=== PATIENT | female | born 1960 | race Caucasian/White ===

== ENCOUNTER → 2019-12-11 13:57 | Outpatient (BNVA) | payer SELFPAY | PROVIDERS: Family Provider Nurse Practitioner Family; PCP Nurse Practitioner Family; Visit Provider Nurse Practitioner Family | DX: M25.532 Pain in left wrist (principal); M19.032 Primary osteoarthritis, left wrist | CPT/HCPCS: 73110 ==

== ENCOUNTER 2020-02-06 17:32 | Inpatient (IN) | payer SELFPAY ==
[2020-02-06] VITALS (9 sets, daily range): BP systolic 100–167; BP diastolic 59–93; PULSE 70–95; RESP 16–17; TEMP 36.4–37.2; O2SAT 97–100; BMI 20.9
--- NOTE | 2020-02-06 19:40 | W.ED.GENADLT ---
HPI - General Adult General: Chief complaint: General Medical Stated complaint: ABNORMAL LABS Time Seen by Provider: 02/06/20 19:39 Source: patient Limitations: no limitations History of Present Illness: HPI narrative: Mrs. Monroe is a nice 59-year-old female who comes in complaining of shortness of breath for 1 month. She states that she gets this with exertion. She states she cannot walk across her house now without becoming short of breath. She denies any chest pain or syncope. Patient does have a history of ulcers but denies any recent black tarry stools or blood in her stool. Patient went see her primary care physician today with fasting labs and was called and told she was anemic. She was advised to come to the ER. Associated symptoms: Deny chest pain, dyspnea, headache(s), nausea, rash, palpitations, syncope or vomiting Review of Systems Const: Denies: fever(s) Eyes: Denies: change in vision ENMT: Denies: throat pain Card: Reports: dyspnea on exertion; Denies: chest pain, palpitations, syncope or pre-syncope Resp: Denies: dyspnea, productive cough or non-productive cough GI: Denies: abdominal pain, nausea, vomiting or diarrhea : Denies: flank pain, dysuria, urinary frequency or urinary urgency Musc: Denies: neck pain, back pain or extremity pain Skin/Breast: Denies: rash or pruritus Neuro: Denies: headache(s), numbness in extremities, weakness in extremities or dizziness Ji/Lymph: Denies: easy bruising or easy bleeding All/Imm: Denies: urticaria PFSH ED PFSH: Medical History (Updated 02/07/20 @ 02:02 by Zander Vinson MD) DJD (degenerative joint disease) HTN (hypertension) Hyperlipidemia LVH (left ventricular hypertrophy) PAD (peripheral artery disease) Peptic ulcer disease EGD around 2004 demonstrating ulcer S/P angiogram of extremity History of SFA stenting Tobacco dependency Surgical History (Updated 02/07/20 @ 01:54 by Zander Vinson MD) History of appendectomy Family History Father PVD (peripheral vascular disease) FH: CABG (coronary artery bypass surgery) Mother Hypertension Atrial fibrillation Social History Smoking and tobacco status: current every day smoker cigarettes Alcohol intake: current Substance/Drug Use: never History of recent travel: No Physical Exam Const: COMMON NORMALS: no acute distress, patient oriented x3, no limitations, healthy appearing and well nourished GENERAL APPEARANCE: cooperative, well kempt and well developed HENMT: COMMON NORMALS: normocephalic, atraumatic, external ears normal, EAC's normal and Normal external nose present HEAD & SCALP: normal to inspection, normocephalic and atraumatic FACE & SINUS: normal facial exam and face symmetric NOSE: Normal external nose present and Normal nares present EXTERNAL EAR: Yes external ears normal EXTERNAL AUDITORY CANAL: EAC's normal MOUTH: Normal oral and palatal mucosa present, lip normal and tongue normal Eye: COMMON NORMALS: Equal, round and reactive pupils present and conjunctivae normal GENERAL EYE: appearance normal, both eyes and all related structures ALIGNMENT: Yes alignment normal PERIORBITAL: periorbital findings normal EYELID: eyelids normal CONJUNCTIVA: Yes conjunctivae normal SCLERA: sclerae normal PUPIL: Yes Equal, round and reactive pupils present Neck/C-Spine: COMMON NORMALS: full ROM, no lymphadenopathy, supple, no meningeal signs and no JVD GENERAL: Yes normal visual inspection and Yes trachea midline Chest: COMMONS NORMALS: normal inspection of the chest and normal palpation of entire chest wall Resp: COMMON NORMALS: normal respiratory effort, No retractions and No use of accessory muscles EFFORT & INSPECTION: Yes able to speak in complete sentences and Yes symmetric chest movement AUSCULTATION: no crackles, no rales, no rhonchi and no wheezes Cardio: COMMON NORMALS: no JVD, regular rate, regular rhythm, S1 normal heart sound present and S2 normal heart sound present RATE: regular rate RHYTHM: regular rhythm HEART SOUNDS: S1 normal heart sound present, S2 normal heart sound present, no click, no gallops, no murmurs, no rubs and abnormal split S2 GI: COMMON NORMALS: Soft to palpation and No hepatosplenomegaly present PALPATION: Yes Soft to palpation, No Tenderness to palpation present (GI), No Guarding due to palpation present (GI), No Rigid due to palpation, Yes No hepatosplenomegaly present, No Hernia present, No Palpable mass present and No Pulsatile mass present RECTAL EXAM: visual inspection normal, normal sphincter tone, heme positive stool trace and No External hemorrhoid(s) present : COMMON NORMALS: Yes no CVA tenderness BLADDER/KIDNEY EXAM: Yes no CVA tenderness EXTERNAL FEMALE EXAM: No Hernia present Back/Pelvis: COMMON NORMALS: no CVA tenderness, thoracic and lumbar spine normal to inspection, no thoracic nor lumbar tenderness and thoraco-lumbar ROM normal Extremity: COMMON NORMALS: normal to inspection, full ROM, capillary refill normal, no joint enlargement, no clubbing, cyanosis or edema and no calf tenderness Neuro: COMMON NORMALS: patient oriented x3, CN's II-XII intact bilaterally, moves all extremities, no focal motor deficits and no sensory deficits noted MENINGEAL SIGNS: Yes no meningeal signs SPEECH: speech normal Psych: COMMON NORMALS: mental status grossly normal, Normal thought process present, cooperative, normal affect, speech normal and activity/motor behavior normal APPEARANCE: Yes well kempt SPEECH: Yes normal speech THOUGHT PROCESS: Normal thought process present Skin: COMMON NORMALS: no rashes or lesions noted, turgor normal, no jaundice, no petechiae and no mottling GENERAL SKIN EXAM: no rashes or lesions noted and turgor normal Course Vital Signs: Vital signs: Vital Signs Temperature 98.7 F 02/07/20 02:11 Pulse Rate 84 02/07/20 02:11 Respiratory Rate 14 02/07/20 02:11 Blood Pressure 155/84 02/07/20 02:11 Pulse Oximetry 98 02/07/20 02:11 MDM - General Adult MDM Narrative: Medical decision making narrative: Chiquita is a nice 59-year-old female who comes in complaining of generalized weakness and shortness of breath. She is found to have a hemoglobin of 5.8. She is only trace Hemoccult positive. She is not been dizzy, lightheaded, syncopal or had any chest pain. Her only complaint is dyspnea on exertion. The case was reviewed in its entirety with Dr. Vinson he is agreeable to admission to the floor for further evaluation and care. Lab Data: Attestation: I reviewed the patient's lab results. Labs: Lab Results 02/06/20 02/06/20 02/06/20 Range/Units 19:50 19:57 19:57 WBC 6.4 (4.0-10.0) 10^3/ uL RBC 2.17 L (4.1-5.3) 10^6/u L Hgb 5.8 L* (11.5-15.3) g/dL Hct 20.1 L* (37.0-47.0) % MCV 92.6 (81-99) fL MCH 26.7 L (28.0-34.0) pg MCHC 28.9 L (30.0-36.0) g/dL RDW 18.2 H (12.1-15.1) % Plt Count 637 H (130-400) 10^3/c mm MPV 8.2 (7.4-10.4) fL Neut % (Auto) 51.5 % Lymph % (Auto) 30.9 % [place] % (Auto) 15.2 % Eos % (Auto) 1.6 % Baso % (Auto) 0.6 % Neut # (Auto) 3.31 (1.8-7.7) 10^3/u L Lymph # (Auto) 2.0 (0.8-4.8) 10^3/u L [place] # (Auto) 1.0 H (0.2-0.9) 10^3/u L Eos # (Auto) 0.1 (0.0-0.8) 10^3/u L Baso # (Auto) 0.0 (0.0-0.1) 10^3/u L Nucleated RBC % (a uto) 0.3 % Nucleated RBCs # 0.0 /100WBC PT (12.1-14.9) SECO NDS INR (0.8-1.2) APTT (23.9-36.7) SECO NDS Sodium 134 L (136-145) mmol/L Potassium 4.5 (3.5-5.1) mmol/L Chloride 102 (98-107) mmol/L Carbon Dioxide 22 (22-29) mmol/L Anion Gap 14.5 (5-19) BUN 11 (8-23) mg/dL Creatinine 1.0 H (0.5-0.9) mg/dL GFR Calculation 56.6 L (90-130) mL/min Glucose 100 (65-115) mg/dL Calculated Osmolal ity 274 L (285-295) mOsm/k g Calcium 8.9 (8.5-10.5) mg/dL Total Bilirubin 0.2 (0.15-1.2) mg/dL AST 14 (0-32) U/L ALT 12 (0-33) U/L Alkaline Phosphata se 106 H (35-105) IU/L Troponin T Baselin e (0-10) ng/L Total Protein 6.9 (6.6-8.7) g/dL Albumin 3.9 (3.5-5.2) g/dL Globulin 3.0 (1.3-4.6) g/dL Blood Type O Positive Rho(D) Type Positive Antibody Screen Negative Crossmatch See Detail 02/06/20 02/06/20 Range/Units 19:57 19:57 WBC (4.0-10.0) 10^3/ uL RBC (4.1-5.3) 10^6/u L Hgb (11.5-15.3) g/dL Hct (37.0-47.0) % MCV (81-99) fL MCH (28.0-34.0) pg MCHC (30.0-36.0) g/dL RDW (12.1-15.1) % Plt Count (130-400) 10^3/c mm MPV (7.4-10.4) fL Neut % (Auto) % Lymph % (Auto) % [place] % (Auto) % Eos % (Auto) % Baso % (Auto) % Neut # (Auto) (1.8-7.7) 10^3/u L Lymph # (Auto) (0.8-4.8) 10^3/u L [place] # (Auto) (0.2-0.9) 10^3/u L Eos # (Auto) (0.0-0.8) 10^3/u L Baso # (Auto) (0.0-0.1) 10^3/u L Nucleated RBC % (a uto) % Nucleated RBCs # /100WBC PT 13.10 (12.1-14.9) SECO NDS INR 0.96 (0.8-1.2) APTT 29.1 (23.9-36.7) SECO NDS Sodium (136-145) mmol/L Potassium (3.5-5.1) mmol/L Chloride (98-107) mmol/L Carbon Dioxide (22-29) mmol/L Anion Gap (5-19) BUN (8-23) mg/dL Creatinine (0.5-0.9) mg/dL GFR Calculation (90-130) mL/min Glucose (65-115) mg/dL Calculated Osmolal ity (285-295) mOsm/k g Calcium (8.5-10.5) mg/dL Total Bilirubin (0.15-1.2) mg/dL AST (0-32) U/L ALT (0-33) U/L Alkaline Phosphata se (35-105) IU/L Troponin T Baselin e 27 H (0-10) ng/L Total Protein (6.6-8.7) g/dL Albumin (3.5-5.2) g/dL Globulin (1.3-4.6) g/dL Blood Type Rho(D) Type Antibody Screen Crossmatch EKG Data^: EKG 1: Attestation: I personally reviewed and interpreted this EKG as follows: EKG interpretation date: 02/06/20 EKG interpretation time: 20:56 Interpretation: Normal sinus rhythm at 86 beats a minute, nonspecific ST and T wave changes. No acute findings. Discharge Plan Discharge Patient Disposition: Admitted As Inpatient Admit Provider: Zander Vinson Clinical Impression: GI bleed Qualifiers: GI bleed type/associated pathology: anorectal hemorrhage Qualified Code(s): K62.5 - Hemorrhage of anus and rectum Anemia Qualifiers: Anemia type: unspecified type Qualified Code(s): D64.9 - Anemia, unspecified Condition: Stable Referrals: Carmen Hassan FNP-C [Primary Care Provider] - Discharge Date/Time: 02/06/20 22:29 Coding Level of Care Code ED Clinical Laboratory Aides Teacher for Chg Fwd Exam Comprehensive
--- NOTE | 2020-02-06 20:01 | PC.NURSE ---
Patient to treatment room. Gowned
[2020-02-06 20:05] LABS: Basophils % 0.6 %; Eosinophils # 0.1 10^3/uL (0.0-0.8); Eosinophils % 1.6 %; Lymphocytes % 30.9 %; Mean Corpuscular HGB Conc 28.9 g/dL (30.0-36.0); Mean Corpuscular Hemoglobin 26.7 pg (28.0-34.0); Mean Corpuscular Volume 92.6 fL (81-99); Mean Platelet Volume 8.2 fL (7.4-10.4); Monocytes % 15.2 %; Neutrophils # 3.31 10^3/uL (1.8-7.7); Neutrophils % 51.5 %; Nucleated Red Blood Cells % 0.3 %; Platelet Count 637 10^3/cmm (130-400); Red Blood Count 2.17 10^6/uL (4.1-5.3); Red Cell Distribution Width 18.2 % (12.1-15.1); White Blood Count 6.4 10^3/uL (4.0-10.0)
[2020-02-06 20:13] LABS: Hematocrit 20.1 % (37.0-47.0); Hemoglobin 5.8 g/dL (11.5-15.3)
[2020-02-06 20:24] LABS: Alanine Aminotransferase 12 U/L (0-33); Albumin Level 3.9 g/dL (3.5-5.2); Alkaline Phosphatase 106 IU/L (35-105); Anion Gap 14.5 (5-19); Aspartate Amino Transferase 14 U/L (0-32); Blood Urea Nitrogen 11 mg/dL (8-23); Calcium 8.9 mg/dL (8.5-10.5); Carbon Dioxide 22 mmol/L (22-29); Chloride 102 mmol/L (98-107); Glomerular Filtration Rate 56.6 mL/min (90-130); Glucose 100 mg/dL (65-115); Osmolality Calculated 274 mOsm/kg (285-295); Potassium 4.5 mmol/L (3.5-5.1); Sodium 134 mmol/L (136-145); Total Bilirubin 0.2 mg/dL (0.15-1.2); Total Protein 6.9 g/dL (6.6-8.7)
--- NOTE | 2020-02-06 20:47 | ECG_ITS ---
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 Measurements Intervals [place] Rate: 86 P: 48 [place]: 202 QRS: -1 QRSD: 87 T: 65 QT: 371 QTc: 444 Interpretive Statements SINUS RHYTHM POSSIBLE LEFT ATRIAL ENLARGEMENT [-0.1mV P WAVE IN V1/V2] Compared to ECG 04/19/2019 05:57:41 First degree AV block no longer present Myocardial infarct finding no longer present Electronically Signed On 02-06-2020 21:43:24 CDT by Giana Pires M.D. [id number]
[2020-02-06 21:09] LABS: INR 0.96 (0.8-1.2); Partial Thromboplastin Time 29.1 SECONDS (23.9-36.7)
[2020-02-06 21:24] LABS: Troponin(5th) Baseline 27 ng/L (0-10)
[2020-02-06] MEDS: pantoprazole 40 mg SDV 80 MG IVP (22:27)
[2020-02-06 22:44] LABS: Troponin 5 2HR 27.05 ng/L (0-10); Troponin 5 2HR Delta 0.05 ABS# (0-10)
[2020-02-06] MEDS: sodium chloride 0.9% (100 ml) 100 ML 10 ML (22:59)
--- NOTE | 2020-02-06 23:23 | PM.HP ---
Providers/Chief Complaint Admitting Physician: Isaias Gómez MD Primary Care Provider: Carmen Hassan FIELD SERVICE CONSULTANT-C Chief Complaint: ABNORMAL LABS History of Present Illness Chiquita Monroe is a 59 year old female that presents to the hospital with complaints of dyspnea on exertion for the last month or so. No chest discomfort, dizzy, and fatigue. Seems a little bit better in the last 3 days. Has had darker stool than usual, for perhaps 1 month. Does have past history of ulcer. Was told by her primary care provider on blood work that she was anemic and needed to come to the ER. No nausea, vomiting, diarrhea. No history of severe anemia in the past. In the emergency department Hemoccult was trace heme positive. No history of cirrhosis, varices. Noticed a slight amount of blood when she gagged on her dentures and vomited 1 day. Rare ibuprofen use and last use this at the end of November. Is on Plavix and aspirin. Has never had a colonoscopy. Does have aunt with history of colon cancer. Review of Systems General: Reports: 10 or more systems reviewed and unremarkable except in HPI and below Const: Reports: fever(s) and malaise; Denies: chills Eyes: Denies: change in vision ENMT: Denies: throat pain Card: Reports: lightheadedness; Denies: chest pain Resp: Reports: dyspnea GI: Denies: abdominal pain : Denies: flank pain Skin/Breast: Denies: rash Neuro: Denies: headache(s) Psych: Denies: anxiety Endo: Denies: polyuria Ji/Lymph: Denies: easy bruising All/Imm: Denies: urticaria Medications/Allergies Home Medications Medication Instructions Recorded Confirmed Last Taken Type amlodipine 5 mg tablet 5 mg PO DAILY 08/22/19 02/06/20 Unknown History ascorbic acid (vitamin C) 500 mg 500 mg PO BID 08/22/19 02/06/20 Unknown History capsule aspirin 81 mg tablet,delayed 81 mg PO DAILY 08/22/19 02/06/20 02/06/20 History release carvedilol 12.5 mg tablet 18.75 mg PO BID tab 08/22/19 02/06/20 02/06/20 History 12.5 mg clopidogrel 75 mg tablet 75 mg PO DAILY 08/22/19 02/06/20 02/06/20 History rosuvastatin 20 mg tablet 20 mg PO DAILY 08/22/19 02/06/20 02/06/20 History spironolactone 25 mg tablet 25 mg PO DAILY PRN 12/11/19 02/06/20 Unknown History Elderberry Tab 1 tab PO BID 02/06/20 02/06/20 Unknown History niacin 500 mg PO BID 02/06/20 02/06/20 Unknown History Allergies Allergy/AdvReac Type Severity Reaction Status Date / Time morphine Allergy Severe Nereida Verified 02/06/20 20:11 erythromycin base Allergy Unknown Unknown Verified 02/06/20 20:11 azithromycin [From Zithromax] Allergy Unknown Verified 02/06/20 20:11 PFSH Acute PFSH: Medical History (Updated 02/07/20 @ 02:02 by Zander Vinson MD) DJD (degenerative joint disease) HTN (hypertension) Hyperlipidemia LVH (left ventricular hypertrophy) PAD (peripheral artery disease) Peptic ulcer disease EGD around 2004 demonstrating ulcer S/P angiogram of extremity History of SFA stenting Tobacco dependency Surgical History (Updated 02/07/20 @ 01:54 by Zander Vinson MD) History of appendectomy Family History Father PVD (peripheral vascular disease) FH: CABG (coronary artery bypass surgery) Mother Hypertension Atrial fibrillation Social History Smoking and tobacco status: current every day smoker cigarettes Alcohol intake: current Substance/Drug Use: never History of recent travel: No Supplemental PFSH Information: Drinks around 2 beverages per day Vitals/I&O/Wt Last Vital Signs Temp 98.7 F 02/06/20 22:49 Pulse 87 02/06/20 22:49 Resp 16 02/06/20 22:49 BP 157/89 02/06/20 22:49 Pulse Ox 99 02/06/20 22:49 02/06/20 02/06/20 02/07/20 14:59 22:59 06:59 Intake Total 0 / 0 Balance 0 / 0 Weight last 48 hrs Weight 62.596 kg Physical Exam Narrative: EXAM NARRATIVE: General exam no apparent distress, conversant and pleasant HEENT: Pupils equally round. Oropharynx clear. Neck is supple no lymphadenopathy or thyromegaly Cardiovascular regular rate and rhythm with a 3/6 systolic murmur heard best at her aortic area Lungs clear no wheezing or crackles Abdomen is soft with positive bowel sounds. No obvious organomegaly. No tenderness. was deferred Extremities no cyanosis clubbing or edema, cap refill brisk Skin no rash Neuro no focal deficits. Data : 02/06/20 19:57 02/06/20 19:57 Other data: Alk phos slightly elevated. Troponin XX 7, unchanged at 120 minutes. EKG sinus rhythm, left axis deviation, nonspecific ST-T wave changes, left atrial enlargement demonstrated by P wave in V1 biphasic. A&P Assessment and plan (1) Anemia: Severe anemia, suspect upper GI loss. Transfusion arranged in the emergency department. 3 units were ordered. Repeat CBC following transfusion Check anemia panel, stool Hemoccult Protonix 40 mg IV every 12 hours Surgery consult for possible EGD Will need colonoscopy as outpatient secondary to family history of colon cancer, no previous screening. Status: Acute Qualifiers: Anemia type: unspecified type Qualified Code(s): D64.9 - Anemia, unspecified (2) GI bleed: Protonix 40 mg IV every 12 hours Status: Acute Qualifiers: GI bleed type/associated pathology: anorectal hemorrhage Qualified Code(s): K62.5 - Hemorrhage of anus and rectum (3) Tobacco dependency: Counseled 3 to 5 minutes on abstinence Status: Acute (4) Heart murmur: Check echocardiogram, for concern of aortic stenosis. Status: Acute Additional A&P Information Peripheral vascular disease. 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
[2020-02-07] VITALS (25 sets, daily range): BP systolic 112–186; BP diastolic 70–102; PULSE 73–95; RESP 12–18; TEMP 36.1–37.2; O2SAT 12–99
--- NOTE | 2020-02-07 02:01 | USCV_ITS ---
Chiquita Monroe Age: 59 Gender: F : 1960 Exam Date: 02/07/2020 06:37 Ordering Phys: Zander Vinson MD Technologist: [employer] [place] [facility] [place]: HEAT MURMUR BP: 151 / 85 HR: 86 Rhythm: Sinus Technical Quality: Adequate MEASUREMENTS (Male / Female) Normal Values 2D ECHO LV Diastolic Diameter PLAX 4.6 cm 4.2 - 5.9 / 3.9 - 5.3 cm LV Systolic Diameter PLAX 2.5 cm LV Chamber Size 3.5 cm IVS Diastolic Thickness 1.4 cm 0.6 - 1.0 / 0.6 - 0.9 cm IVS Systolic Thickness 1.7 cm LVPW Diastolic Thickness 1.4 cm 0.6 - 1.0 / 0.6 - 0.9 cm LVPW Systolic Thickness 1.9 cm RV Chamber Size 2.6 cm LVOT Diameter 2.0 cm LV Ejection Fraction 2D Teich 75.9 % LV Ejection Fraction MOD 2C 70.2 % LV Ejection Fraction 2C AL 71.4 % LA Diameter 4.9 cm LA Width 2.5 cm LA Height 4.5 cm RA Width 2.7 cm RA Height 4.1 cm Aorta at Sinotubular Diameter 2.7 cm M-MODE LV Diastolic Diameter MM 5.7 cm 4.2 - 5.9 / 3.9 - 5.3 cm LV Systolic Diameter MM 2.8 cm LV Ejection Fraction MM Teich 81.6 % IVS Diastolic Thickness MM 0.6 cm 0.6 - 1.0 / 0.6 - 0.9 cm IVS Systolic Thickness MM 1.8 cm LVPW Diastolic Thickness MM 0.8 cm 0.6 - 1.0 / 0.6 - 0.9 cm LVPW Systolic Thickness MM 1.6 cm RV Diastolic Diameter MM 0.6 cm Aortic Annulus Diameter 3.2 cm LA Ao Ratio MM 1.5 MV E Point Septal Separation 0.1 cm DOPPLER AV Peak Velocity 176.0 cm/s LVOT Peak Velocity 190.0 cm/s AV Area Cont Eq vti 3.5 cm squared AV Area Cont Eq pk 3.4 cm squared MV Area PHT 5.0 cm squared Mitral E to A Ratio 1.2 MV E' Velocity 12.0 cm/s Mitral E to MV E' Ratio 14.3 Mitral E to LV E' Lateral Ratio 13.8 Mitral E to LV E' Septal Ratio 14.9 TR Peak Velocity 238.9 cm/s TR Peak Gradient 22.8 mmHg TR Mean Velocity 182.6 cm/s TR Mean Gradient 14.5 mmHg TR Velocity Time Integral 75.3 cm TV Peak E Velocity 84.0 cm/s Right Atrial Pressure 3.0 mmHg Pulmonary Artery Systolic Pressu 25.8 mmHg PV Peak Velocity 71.0 cm/s RV Acceleration Time 0.1 s RV Ejection Time 0.3 s RV AcT/ET 0.4 FINDINGS Left Ventricle Normal left ventricular size and systolic function, EF 67 %. Moderate left ventricular hypertrophy. No regional wall motion abnormalities. Grade III/IV diastolic dysfunction (restrictive filling pattern), severely elevated filling pressures. Right Ventricle The right ventricle is normal in size and function. Right Atrium The right atrium is normal in size. Left Atrium Mildly increased left atrial size. Mitral Valve Thickened mitral valve. Moderate-severe mitral valve regurgitation. Possible prolapse of the anterior mitral leaflet Aortic Valve Trace aortic valve regurgitation. Tricuspid Valve Trace tricuspid valve regurgitation. Estimated pulmonary artery peak systolic pressure 26 mmHg Pulmonic Valve Structurally normal pulmonic valve without significant stenosis. There is no pulmonic regurgitation. Pericardium Normal pericardium without effusion. Aorta Normal aortic annulus size. CONCLUSIONS Normal left ventricular size and systolic function, EF 67 %. Moderate left ventricular hypertrophy. No regional wall motion abnormalities. Grade III/IV diastolic dysfunction (restrictive filling pattern), Mildly increased left atrial size. Thickened mitral valve. Moderate-severe mitral valve regurgitation. Possible prolapse of the anterior mitral leaflet Trace aortic valve regurgitation. Trace tricuspid valve regurgitation. Estimated pulmonary artery peak systolic pressure 26 mmHg There is no pericardial effusion. There are no intracardiac masses. No previous study is available for comparison. Dr Heather Sesay MD FAC (Electronically Signed) Final Date: 07 February 2020 16:56 S
[2020-02-07] MEDS: sodium chloride 0.9% (100 ml) 100 ML 10 ML (02:31)
[2020-02-07 03:52] LABS: Basophils % 0.6 %; Eosinophils # 0.2 10^3/uL (0.0-0.8); Eosinophils % 2.3 %; Hematocrit 23.6 % (37.0-47.0); Hemoglobin 7.2 g/dL (11.5-15.3); Lymphocytes # 2.2 10^3/uL (0.8-4.8); Lymphocytes % 34.2 %; Mean Corpuscular HGB Conc 30.5 g/dL (30.0-36.0); Mean Corpuscular Hemoglobin 26.6 pg (28.0-34.0); Mean Corpuscular Volume 87.1 fL (81-99); Mean Platelet Volume 8.4 fL (7.4-10.4); Monocytes # 0.9 10^3/uL (0.2-0.9); Monocytes % 14.5 %; Neutrophils # 3.07 10^3/uL (1.8-7.7); Neutrophils % 48.1 %; Nucleated Red Blood Cells % 0 %; Platelet Count 506 10^3/cmm (130-400); Red Blood Count 2.71 10^6/uL (4.1-5.3); Red Cell Distribution Width 19.3 % (12.1-15.1); White Blood Count 6.4 10^3/uL (4.0-10.0)
[2020-02-07 04:20] LABS: Add On to Lab Order(s) Added
[2020-02-07 04:21] LABS: Blood Urea Nitrogen 10 mg/dL (8-23); Calcium 8.4 mg/dL (8.5-10.5); Carbon Dioxide 20 mmol/L (22-29); Chloride 104 mmol/L (98-107); Glomerular Filtration Rate 63.9 mL/min (90-130); Glucose 97 mg/dL (65-115); Osmolality Calculated 276 mOsm/kg (285-295); Sodium 135 mmol/L (136-145)
[2020-02-07 04:25] LABS: Troponin 5 6HR 25.97 ng/L (0-10)
[2020-02-07 04:26] LABS: Troponin 5 6HR Delta -1.03 ng/L (0-12)
[2020-02-07 04:32] LABS: Thyroid Stimulating Hormone 1.21 uIU/mL (0.27-4.20)
[2020-02-07 04:40] LABS: Ferritin 15 ng/mL (15-150); Iron 155 ug/dL (37-145); Percent Saturation 43.1 % (20-50); Total Iron Binding Capacity 359 mcg/dl; Unsaturated Iron Binding 204 ug/dL (112-347); Vitamin B12 812 pg/mL (232-1245)
[2020-02-07 04:41] LABS: Folate Level 17.4 ng/mL (4.8-37.3)
[2020-02-07] MEDS: sodium chloride 0.9% (100 ml) 100 ML 40 ML (06:11)
[2020-02-07] MEDS: atorvastatin 40 mg Tablet 80 MG PO (08:07)
[2020-02-07] MEDS: amlodipine 5 mg Tablet PO (08:07)
--- NOTE | 2020-02-07 08:22 | PC.CHAP ---
Pastoral Care Encounter/Spiritual Assessment Type of Contact [] Declined career technical education instructor visit [] Patient/Family/Request visit [] Outpatient visit [] Follow-up visit [] Physician referral [] Code/Alert [x] Routine visit [] Staff referral [] Actively dying [] Patient sleeping [] Family support [] [] Out of room [] Palliative care [] [] Receiving care in room [] Pre-surgical visit [] Trauma [] Long length of stay [] ICU visit [] Other: Relational/Emotional Strength [] Patient feels connected with others/family/visitors/staff [] Distress [] Loneliness/isolation [] Abandonment Spirituality of Patient [] Person of Roxi [] Attends Pentecostalism of their Roxi [] Believes in Prayer [] Reads Bible or Faith materials [] There are Spiritual issues to be addressed Oil 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 Interventions [x] Prayer [x] Active listening [x] Non-anxious presence [x] Spiritual/emotional support [] Crisis/trauma care [] Spiritual counseling [] Bereavement support [] Provided bereavement packet [] Provided Bible/devotional materials [] Provided toy/stuffed animal, coloring book to patient or family member [] Provided Communion [] Anointing/Point Comfort [] Salvation [x] Completed spiritual assessment [] Other: Impact on Illness or Injury [] Angry [] Fearful [] Anxious [] Often cries [] Exhaustion [] Unable to work [] Unable to attend oriental orthodox [] Unable to walk/stand [] Unable to read [] Unable to drive [] Unable to eat/drink [] Unable to sleep [] Unable to be with family [] Patient intubated [] Other: Summary patient receiving blood- resting well. Time spent with patient 10 min
[2020-02-07] MEDS: pantoprazole 40 mg SDV IVP ×2 (10:22→21:01)
--- NOTE | 2020-02-07 11:04 | PC.RESP ---
Smoking Cessation information sent to patient.
--- NOTE | 2020-02-07 11:05 | PM.PN ---
Subjective Subjective: Interval history: Repeat 7.2 this morning. Patient otherwise feeling well. No melena. She had one bowel movement this morning which she reports was brown and semisolid. No hematemesis. Medications: Reviewed: Yes Vitals/I&O/Wt Last Vital Signs Temp 98.2 F 02/07/20 10:17 Pulse 85 02/07/20 10:17 Resp 18 02/07/20 10:17 BP 186/93 02/07/20 10:17 Pulse Ox 93 02/07/20 10:17 02/06/20 02/07/20 02/07/20 22:59 06:59 14:59 Intake Total 0 / 0 700 / 700 0 / 0 Output Total 1150 / 1150 500 / 500 Balance 0 / 0 -450 / -450 -500 / -500 Weight last 48 hrs Weight 62.596 kg Physical Exam Narrative: EXAM NARRATIVE: GEN: Awake, alert and oriented, no acute distress CVS: S1S2 N RS: CTA B/L except crackles over RUL Abd: Soft, nt/nd , bs+ ELECTRICAL INTEGRATOR: no focal neuro deficits Data : 02/07/20 03:35 02/07/20 03:35 A&P Assessment and plan (1) Anemia: Severe anemia, suspect upper GI loss. Status post 3 unit RBC transfusion. Will order another unit now. Protonix 40 mg IV every 12 hours Surgery consult for possible EGD Will need colonoscopy as outpatient secondary to family history of colon cancer, no previous screening. Status: Acute Qualifiers: Anemia type: unspecified type Qualified Code(s): D64.9 - Anemia, unspecified (2) GI bleed: Protonix 40 mg IV every 12 hours Status: Acute Qualifiers: GI bleed type/associated pathology: anorectal hemorrhage Qualified Code(s): K62.5 - Hemorrhage of anus and rectum (3) Tobacco dependency: Status: Acute (4) Heart murmur: Check echocardiogram, for concern of aortic stenosis., Results pending Status: Acute Additional A&P Information Peripheral vascular disease. At this point will need to hold antiplatelet Hyperlipidemia, continue statin full code SCDs for DVT prophylaxis, anticoagulation contraindicated secondary to GI bleeding Attestations Medical Necessity Statement*: Awaiting surgical assessment for EGD, blood transfusion Coding Level of Care Code Acute Talent Development Specialist for [facility] Diagnoses Anemia D64.9 Anemia type: unspecified type GI bleed K62.5 GI bleed type/associated pathology: anorectal hemorrhage Tobacco dependency F17.200 Heart murmur R01.1
[2020-02-07] MEDS: sodium chloride 0.9% 1,000 ML 50 ML IV (14:30)
--- NOTE | 2020-02-07 16:30 | PC.NURSE ---
DR ROBERT ODERED FOR PT TO BE CLEANED OUT BEFORE EGD AND COLONOSCOPY AND IF SHE IS NOT IN A.M THEN HE ORDERED FOR HER TO HAVE A FLEETS ENEMA.
--- NOTE | 2020-02-07 16:35 | P.CONIM_ITS ---
Providers/Reason For Consult Consulting Physican/Specialty*: Dr. Bergman Reason for Consult*: GI bleed, anemia Attending Physician: Adrienne Bergman MD Primary Care Provider: Carmen HassanP-C History of Present Illness History of Present Illness Chiquita Monroe is a 59 year old female who had blood work done yesterday due to 1 month history of shortness of breath. She was noted to have a hemoglobin of 5 and therefore was admitted to the hospital for transfusion. Patient denies any abdominal pain, nausea, vomiting, hematemesis, hematochezia or melena though she states her stools have been a bit dark. She was diagnosed with 2 ulcers at the GE junction about 20 years ago on endoscopy. Her father's sisters had colon cancer but she is never had a colonoscopy before. Denies any weight loss. Review of Systems General: Reports: 10 or more systems reviewed and unremarkable except in HPI and below Meds/Allergies Home Medications and Allergies Home Medications Medication Instructions Recorded Confirmed Last Taken Type amlodipine 5 mg tablet 5 mg PO DAILY 08/22/19 02/06/20 Unknown History ascorbic acid (vitamin C) 500 mg 500 mg PO BID 08/22/19 02/06/20 Unknown History capsule aspirin 81 mg tablet,delayed 81 mg PO DAILY 08/22/19 02/06/20 02/06/20 History release carvedilol 12.5 mg tablet 18.75 mg PO BID tab 08/22/19 02/06/20 02/06/20 History 12.5 mg clopidogrel 75 mg tablet 75 mg PO DAILY 08/22/19 02/06/20 02/06/20 History rosuvastatin 20 mg tablet 20 mg PO DAILY 08/22/19 02/06/20 02/06/20 History spironolactone 25 mg tablet 25 mg PO DAILY PRN 12/11/19 02/06/20 Unknown History Elderberry Tab 1 tab PO BID 02/06/20 02/06/20 Unknown History niacin 500 mg PO BID 02/06/20 02/06/20 Unknown History Allergies Allergy/AdvReac Type Severity Reaction Status Date / Time morphine Allergy Severe Nereida Verified 02/06/20 20:11 erythromycin base Allergy Unknown Unknown Verified 02/06/20 20:11 azithromycin [From Zithromax] Allergy Unknown Verified 02/06/20 20:11 Current Medications Current Medications Generic Name Dose Route Start Last Admin Trade Name Miguelq PRN Reason Stop Dose Admin Amlodipine Besylate 5 mg 02/07/20 09:00 02/07/20 08:07 Norvasc PO 5 mg DAILY MICHAEL Administration Atorvastatin Calcium 80 mg 02/07/20 09:00 02/07/20 08:07 Lipitor PO 80 mg DAILY MICHAEL Administration Sodium Chloride 1,000 mls @ 50 mls/hr 02/06/20 19:45 02/07/20 14:30 Sodium Chloride 0.9% IV 50 mls/hr .Q20H MICHAEL Administration Pantoprazole Sodium 40 mg 02/07/20 02:15 02/07/20 10:22 Protonix IVP 40 mg Q12H MICHAEL Administration PFSH Acute PFSH: Medical History DJD (degenerative joint disease) HTN (hypertension) Hyperlipidemia LVH (left ventricular hypertrophy) PAD (peripheral artery disease) Peptic ulcer disease EGD around 2004 demonstrating ulcer S/P angiogram of extremity History of SFA stenting Tobacco dependency Surgical History History of appendectomy Family History Father PVD (peripheral vascular disease) FH: CABG (coronary artery bypass surgery) Mother Hypertension Atrial fibrillation Social History Smoking and tobacco status: current every day smoker cigarettes Alcohol intake: current Substance/Drug Use: never History of recent travel: No Vitals/I&O/Wt Last Vital Signs Temp 98.1 F 02/07/20 15:55 Pulse 80 02/07/20 15:55 Resp 18 02/07/20 15:55 BP 162/89 02/07/20 15:55 Pulse Ox 95 02/07/20 15:55 02/07/20 02/07/20 02/07/20 06:59 14:59 22:59 Intake Total 700 / 700 0 / 0 Output Total 1150 / 1150 500 / 500 Balance -450 / -450 -500 / -500 Weight last 48 hrs Weight 138 lb Physical Exam Narrative: EXAM NARRATIVE: HEENT: Normocephalic Eye: Sclera /conjunctiva normal Abdomen: Soft to palpation, , Well-healed midline infraumbilical laparotomy scar Neurological: Oriented to place person and time Skin: Intact, no lesions appreciated on gross exam A&P Assessment and plan (1) GI bleed: 59-year-old female with history of peptic ulcer disease in the past and known family history of colon cancer who has never had a colonoscopy before who presents with a hemoglobin of 5. Plan for EGD/colonoscopy under MAC tomorrow Procedure, risks, benefits and alternatives have been discussed with the patient who wishes to proceed with surgery. Status: Acute Qualifiers: GI bleed type/associated pathology: anorectal hemorrhage Qualified Code(s): K62.5 - Hemorrhage of anus and rectum Coding Level of Care Code Acute Brick Mason for [facility] Diagnoses GI bleed K62.5 GI bleed type/associated pathology: anorectal hemorrhage
[2020-02-07] MEDS: magnesium citrate Btl 296 mL PO ×2 (18:29→20:57)
--- NOTE | 2020-02-07 18:49 | PC.NURSE ---
PT AT BEGINNING OF SHIFT HAD JUST RECEIVED HER 3RD UNIT OF BLOOD WHICH FINISHED AT 1017. PT STARTED SHIFT AT NPO BUT DID RECEIVE AM MEDICATIONS WITH A SIP OF WATER. PT HAD A BM THIS AM BUT DID NOT SAVE STOOL FOR A SAMPLE, THIS NURSE NOTIFIED THE PT THAT WE DO STILL NEED A STOOL SAMPLE AND FOR HER TO INFORM THE STAFF OF BM SO WE CAN COLLECT. PT STATED THIS STOOL WAS FORMED BROWN AND NO SIGNS OF BLOOD IN STOOL PER PT. DR ZIMMER ORDERED ANOTHER UNIT OF BLOOD SO PT HAD 4TH UNIT HUNG AT APPROXIMATELY 1740. DR ROBERT DID SEE PT AND STATED HE IS ORDERING EGD AND COLONOSCOPY TOMORROW MORNING AND FOR PT TO BE CLEANED OUT IF PT IS NOT CLEANED OUT IN AM THE NURSE IS TO GIVE ENEMA TO CLEAN HER OUT . PT IS ON A CLEAR LIQUID DIET AT DINNER TIME UNTIL MIDNIGHT AND THEN SHE WILL BE NPO. PT WAS INFORMED AND IN COMPLIANCE WITH THIS.
[2020-02-07] MEDS: bisacodyl 5 mg Tablet 40 MG PO (20:58)
[2020-02-08] VITALS (10 sets, daily range): BP systolic 111–184; BP diastolic 72–112; PULSE 78–98; RESP 16–20; TEMP 36.1–36.9; O2SAT 92–98
[2020-02-08 03:08] LABS: Basophils # 0.1 10^3/uL (0.0-0.1); Basophils % 0.8 %; Eosinophils # 0.1 10^3/uL (0.0-0.8); Eosinophils % 0.9 %; Hematocrit 40.6 % (37.0-47.0); Hemoglobin 13.4 g/dL (11.5-15.3); Lymphocytes # 1.5 10^3/uL (0.8-4.8); Lymphocytes % 19.6 %; Mean Corpuscular Hemoglobin 27.9 pg (28.0-34.0); Mean Corpuscular Volume 84.4 fL (81-99); Mean Platelet Volume 8.3 fL (7.4-10.4); Monocytes # 1.1 10^3/uL (0.2-0.9); Monocytes % 14.6 %; Neutrophils # 4.83 10^3/uL (1.8-7.7); Neutrophils % 63.7 %; Nucleated Red Blood Cells % 0.3 %; Platelet Count 514 10^3/cmm (130-400); Red Blood Count 4.81 10^6/uL (4.1-5.3); Red Cell Distribution Width 17.4 % (12.1-15.1); White Blood Count 7.6 10^3/uL (4.0-10.0)
[2020-02-08 03:34] LABS: Alanine Aminotransferase 12 U/L (0-33); Albumin Level 4.2 g/dL (3.5-5.2); Alkaline Phosphatase 117 IU/L (35-105); Anion Gap 14.8 (5-19); Aspartate Amino Transferase 15 U/L (0-32); Blood Urea Nitrogen 8 mg/dL (8-23); Calcium 9.5 mg/dL (8.5-10.5); Carbon Dioxide 19 mmol/L (22-29); Chloride 105 mmol/L (98-107); Globulin 3.3 g/dL (1.3-4.6); Glomerular Filtration Rate 73.2 mL/min (90-130); Glucose 102 mg/dL (65-115); Osmolality Calculated 278 mOsm/kg (285-295); Sodium 136 mmol/L (136-145); Total Bilirubin 0.9 mg/dL (0.15-1.2); Total Protein 7.5 g/dL (6.6-8.7)
[2020-02-08 03:42] LABS: Potassium 2.8 mmol/L (3.5-5.1)
[2020-02-08] MEDS: potassium chloride premix 40 MEQ/100 ML PREMIX 25 MEQ IV (04:51)
[2020-02-08] MEDS: lidocaine 1% INJ 20 mL 5 ML IV (04:51)
[2020-02-08 06:33] LABS: HCG, Serum Qual Negative (Negative)
[2020-02-08] MEDS: amlodipine 5 mg Tablet PO (08:35)
[2020-02-08] MEDS: pantoprazole 40 mg SDV IVP (11:10)
--- NOTE | 2020-02-08 11:56 | ANES.PREANE2 ---
Pre-Anesthetic Assessment Pre-Anesthetic Assessment: Height/Weight: Height 1.73 m Weight 62.596 kg Temp Pulse Resp BP Pulse Ox 97 F L 93 20 H 161/105 98 02/08/20 11:53 02/08/20 11:53 02/08/20 11:53 02/08/20 11:53 02/08/20 11:53 Preop Diagnosis: gi bleed Proposed Procedure: Operation Date: 02/08/20 13:00 Proposed Procedures p EGD(Not Applicable) - Isaias Gómez MD s Colonoscopy(Not Applicable) - Isaias Gómez MD Familial anesthetic complications: None Last intake: Intake NPO > 8 hrs Last Liquid Date 02/08/20 Last Liquid Time 00:00 Last Solid Date 02/07/20 Last Solid Time 17:30 Social: Social History: Tobacco and No alcohol Exam: Pre-Anes Outpt Exam: alert, oriented x 3, clear to auscultation bilaterally and regular rate & rhythm Airway: Cervical ROM: WNL MP: 2 Additional comments: 8 teeth remaining CV/HEM: CV/HEM: Anemia, HTN, Murmur and PVD (Stent on plavix - last took herself on ) Comments: echo w/ restrictive filling patter, lvh, and mod-severe Mitral regurge : : None reported Hepatic: Hepatic: None reported GI: GI: PUD Anesthetic Plan: ASA status: 4 Anesthesia: MAC Risk of > 500 ml blood loss (7ml/kg in children): No Meds/Allergies Current Medications: Current Medications Generic Name Dose Route Start Last Admin Trade Name Freq PRN Reason Stop Dose Admin Amlodipine Besylat e 5 mg 02/07/20 09:00 02/08/20 08:35 Norvasc PO 5 mg DAILY MICHAEL Administration Atorvastatin Calci um 80 mg 02/07/20 09:00 02/07/20 08:07 Lipitor PO 80 mg DAILY MICHAEL Administration Sodium Chloride 1,000 mls @ 50 ml s/hr 02/06/20 19:45 02/07/20 14:30 Sodium Chloride 0.9% IV 50 mls/hr .Q20H MICHAEL Administration Pantoprazole Sodiu m 40 mg 02/07/20 02:15 02/08/20 11:10 Protonix IVP 40 mg Q12H MICHAEL Administration PFSH Anesthesia PFSH: Medical History (Updated 02/07/20 @ 16:38 by Isaias Gómez MD) DJD (degenerative joint disease) HTN (hypertension) Hyperlipidemia LVH (left ventricular hypertrophy) PAD (peripheral artery disease) Peptic ulcer disease EGD around 2004 demonstrating ulcer S/P angiogram of extremity History of SFA stenting Surgical History (Updated 02/07/20 @ 16:38 by Isaias Gómez MD) S/P appendectomy Family History Father PVD (peripheral vascular disease) FH: CABG (coronary artery bypass surgery) Mother Hypertension Atrial fibrillation Social History Smoking and tobacco status: current every day smoker cigarettes Alcohol intake: current Substance/Drug Use: never History of recent travel: No Supplemental PFSH Information: Drinks around 2 beverages per day Data Anesthesia CBC & Chem 7: 02/08/20 02:15 02/08/20 02:15 Other Labs: Laboratory Results - last 48 hr 02/06/20 02/06/20 02/06/20 19:50 19:57 19:57 WBC 6.4 RBC 2.17 L Hgb 5.8 L* Hct 20.1 L* MCV 92.6 MCH 26.7 L MCHC 28.9 L RDW 18.2 H Plt Count 637 H MPV 8.2 Neut % (Auto) 51.5 Lymph % (Auto) 30.9 [place] % (Auto) 15.2 Eos % (Auto) 1.6 Baso % (Auto) 0.6 Neut # (Auto) 3.31 Lymph # (Auto) 2.0 [place] # (Auto) 1.0 H Eos # (Auto) 0.1 Baso # (Auto) 0.0 Nucleated RBC % (auto) 0.3 Nucleated RBCs # 0.0 PT INR APTT Sodium 134 L Potassium 4.5 Chloride 102 Carbon Dioxide 22 Anion Gap 14.5 BUN 11 Creatinine 1.0 H GFR Calculation 56.6 L Glucose 100 Calculated Osmolality 274 L Calcium 8.9 Iron TIBC % Saturation Unsat Iron Binding Ferritin Total Bilirubin 0.2 AST 14 ALT 12 Alkaline Phosphatase 106 H Troponin T Baseline Troponin T 120 Minute Delta Troponin T Troponin T Hi Sens 6Hr Troponin T Hi Sens 6Hr Delta Total Protein 6.9 Albumin 3.9 Globulin 3.0 Vitamin B12 Folate TSH HCG, Qual Blood Type O Positive Rho(D) Type Positive Antibody Screen Negative Crossmatch See Detail 02/06/20 02/06/20 02/06/20 19:57 19:57 21:55 WBC RBC Hgb Hct MCV MCH MCHC RDW Plt Count MPV Neut % (Auto) Lymph % (Auto) [place] % (Auto) Eos % (Auto) Baso % (Auto) Neut # (Auto) Lymph # (Auto) [place] # (Auto) Eos # (Auto) Baso # (Auto) Nucleated RBC % (auto) Nucleated RBCs # PT 13.10 INR 0.96 APTT 29.1 Sodium Potassium Chloride Carbon Dioxide Anion Gap BUN Creatinine GFR Calculation Glucose Calculated Osmolality Calcium Iron TIBC % Saturation Unsat Iron Binding Ferritin Total Bilirubin AST ALT Alkaline Phosphatase Troponin T Baseline 27 H Troponin T 120 Minute 27.05 H Delta Troponin T 0.05 Troponin T Hi Sens 6Hr Troponin T Hi Sens 6Hr Delta Total Protein Albumin Globulin Vitamin B12 Folate TSH HCG, Qual Blood Type Rho(D) Type Antibody Screen Crossmatch 02/07/20 02/07/20 02/07/20 03:35 03:35 03:35 WBC 6.4 RBC 2.71 L Hgb 7.2 L Hct 23.6 L MCV 87.1 D MCH 26.6 L MCHC 30.5 D RDW 19.3 H Plt Count 506 H MPV 8.4 Neut % (Auto) 48.1 Lymph % (Auto) 34.2 [place] % (Auto) 14.5 Eos % (Auto) 2.3 Baso % (Auto) 0.6 Neut # (Auto) 3.07 Lymph # (Auto) 2.2 [place] # (Auto) 0.9 Eos # (Auto) 0.2 Baso # (Auto) 0.0 Nucleated RBC % (auto) 0 Nucleated RBCs # 0.0 PT INR APTT Sodium 135 L Potassium 4.0 Chloride 104 Carbon Dioxide 20 L Anion Gap 15.0 BUN 10 Creatinine 0.9 GFR Calculation 63.9 L Glucose 97 Calculated Osmolality 276 L Calcium 8.4 L Iron TIBC % Saturation Unsat Iron Binding Ferritin Total Bilirubin AST ALT Alkaline Phosphatase Troponin T Baseline Troponin T 120 Minute Delta Troponin T Troponin T Hi Sens 6Hr 25.97 H Troponin T Hi Sens 6Hr Delta -1.03 L Total Protein Albumin Globulin Vitamin B12 Folate TSH HCG, Qual Blood Type Rho(D) Type Antibody Screen Crossmatch 02/07/20 02/07/20 02/07/20 03:35 03:35 03:35 WBC RBC Hgb Hct MCV MCH MCHC RDW Plt Count MPV Neut % (Auto) Lymph % (Auto) [place] % (Auto) Eos % (Auto) Baso % (Auto) Neut # (Auto) Lymph # (Auto) [place] # (Auto) Eos # (Auto) Baso # (Auto) Nucleated RBC % (auto) Nucleated RBCs # PT INR APTT Sodium Potassium Chloride Carbon Dioxide Anion Gap BUN Creatinine GFR Calculation Glucose Calculated Osmolality Calcium Iron 155 H TIBC 359 % Saturation 43.1 Unsat Iron Binding 204 Ferritin 15 Total Bilirubin AST ALT Alkaline Phosphatase Troponin T Baseline Troponin T 120 Minute Delta Troponin T Troponin T Hi Sens 6Hr Troponin T Hi Sens 6Hr Delta Total Protein Albumin Globulin Vitamin B12 812 Folate 17.4 TSH 1.21 HCG, Qual Blood Type Rho(D) Type Antibody Screen Crossmatch 02/08/20 02/08/20 02/08/20 02:15 02:15 02:15 WBC 7.6 RBC 4.81 Hgb 13.4 D Hct 40.6 D MCV 84.4 MCH 27.9 L MCHC 33.0 D RDW 17.4 H Plt Count 514 H MPV 8.3 Neut % (Auto) 63.7 Lymph % (Auto) 19.6 [place] % (Auto) 14.6 Eos % (Auto) 0.9 Baso % (Auto) 0.8 Neut # (Auto) 4.83 Lymph # (Auto) 1.5 [place] # (Auto) 1.1 H Eos # (Auto) 0.1 Baso # (Auto) 0.1 Nucleated RBC % (auto) 0.3 Nucleated RBCs # 0.0 PT INR APTT Sodium 136 Potassium 2.8 L* D Chloride 105 Carbon Dioxide 19 L Anion Gap 14.8 BUN 8 Creatinine 0.8 GFR Calculation 73.2 L Glucose 102 Calculated Osmolality 278 L Calcium 9.5 Iron TIBC % Saturation Unsat Iron Binding Ferritin Total Bilirubin 0.9 AST 15 ALT 12 Alkaline Phosphatase 117 H Troponin T Baseline Troponin T 120 Minute Delta Troponin T Troponin T Hi Sens 6Hr Troponin T Hi Sens 6Hr Delta Total Protein 7.5 Albumin 4.2 Globulin 3.3 Vitamin B12 Folate TSH HCG, Qual Negative Blood Type Rho(D) Type Antibody Screen Crossmatch Micro: Microbiology 02/07/20 20:52 Occult Blood (FIT) - Final Stool Routine Collection Cardiac Studies: No Data to Display
[2020-02-08 12:40] LABS: Potassium 3.7 mmol/L (3.5-5.1)
--- NOTE | 2020-02-08 13:20 | PM.DCS ---
Discharge Providers Date of Admission: 02/07/20 15:02 Date of Discharge: February 08, 2020 Attending Provider at Admission: Zander Vinson MD Attending Provider at Discharge: Adrienne Bergman MD Primary Care Provider: Carmen Hassan-Agustín Diagnoses at Discharge Discharge Diagnosis (1) Gastric ulcer: Status: Acute Qualifiers: Gastric ulcer chronicity: unspecified ulcer chronicity Gastric ulcer complication status: with hemorrhage Qualified Code(s): K25.4 - Chronic or unspecified gastric ulcer with hemorrhage (2) GI bleed: Status: Acute Qualifiers: GI bleed type/associated pathology: anorectal hemorrhage Qualified Code(s): K62.5 - Hemorrhage of anus and rectum (3) Anemia: Status: Acute Qualifiers: Anemia type: unspecified type Qualified Code(s): D64.9 - Anemia, unspecified Reason for Visit Reason for Visit: ABNORMAL LABS Hospital Course Discharge Summary: Chiquita Monroe is a 59 year old female that presents to the hospital with complaints of dyspnea on exertion for the last month or so. Upon presentation her hemoglobin was noted to be markedly low at 5.8. She is on Plavix and aspirin for history of peripheral artery disease and status post stenting of SFA in 05/2018 and then in-stent restenosis treated with multiple balloon angioplasty in April 2019. She received 4 units of blood transfusion while in the hospital, and at the time of discharge currently hemoglobin is at 13.2. She also underwent an EGD and colonoscopy to evaluate for source of bleeding. She was found to have gastric ulceration without any active signs of current bleeding. She remained hemodynamically stable during the admission course. At the time of discharge aspirin is being stopped. She is to continue Plavix 75 mg daily for the peripheral artery disease with stenting. Close follow-up with cardiology. Return to see Dr. Gómez in the clinic in 10 to 14 days and follow-up on results of the biopsy that was taken today. Of note colonoscopy showed a 3 mm sessile polyp in the sigmoid colon which was removed. He was also noted to be some internal hemorrhoids in the rectum. She has no episodes of melena or hematemesis at the time of discharge. She had an incidentally noted systolic cardiac murmur with suspicion of aortic stenosis for which he underwent an echocardiogram. It showed normal LVEF of 67%, moderate LVH without regional wall motion abnormalities. Grade 3 diastolic dysfunction. Thickened mitral valve with possible moderate to severe mitral valve regurgitation with prolapse of the anterior mitral valve leaflet. No abnormalities of aortic wall per se. She is instructed to follow-up with cardiology both for plans of further anti-platelet therapy and follow-up on incidentally noted MVR. Physical Exam Narrative: EXAM NARRATIVE: GEN: Awake, alert and oriented, no acute distress CVS: S1S2 N RS: CTA B/L Abd: Soft, nt/nd , bs+ ARTIFICIAL PLASTIC EYE MAKER: no focal neuro deficits Discharge Data Data Completed and Pending: Completed Studies During Hospitalization Category Date Time Status CV echo complete* [id number] Routine Ultrasound 02/07/20 02:01 Completed Pending at discharge Category Date Time Status Pathology: Surgic al [PTH] Routine Pth 02/08/20 13:07 Ordered Labs from last 24 hours 02/08/20 02/08/20 02/08/20 11:55 02:15 02:15 WBC RBC Hgb Hct MCV MCH MCHC RDW Plt Count MPV Neut % (Auto) Lymph % (Auto) [place] % (Auto) Eos % (Auto) Baso % (Auto) Neut # (Auto) Lymph # (Auto) [place] # (Auto) Eos # (Auto) Baso # (Auto) Nucleated RBC % (a uto) Nucleated RBCs # Sodium 136 Potassium 3.7 2.8 L* D Chloride 105 Carbon Dioxide 19 L Anion Gap 14.8 BUN 8 Creatinine 0.8 GFR Calculation 73.2 L Glucose 102 Calculated Osmolal ity 278 L Calcium 9.5 Total Bilirubin 0.9 AST 15 ALT 12 Alkaline Phosphata se 117 H Total Protein 7.5 Albumin 4.2 Globulin 3.3 HCG, Qual Negative Blood Type Rho(D) Type Antibody Screen Crossmatch 02/08/20 02/06/20 02:15 19:50 WBC 7.6 RBC 4.81 Hgb 13.4 D Hct 40.6 D MCV 84.4 MCH 27.9 L MCHC 33.0 D RDW 17.4 H Plt Count 514 H MPV 8.3 Neut % (Auto) 63.7 Lymph % (Auto) 19.6 [place] % (Auto) 14.6 Eos % (Auto) 0.9 Baso % (Auto) 0.8 Neut # (Auto) 4.83 Lymph # (Auto) 1.5 [place] # (Auto) 1.1 H Eos # (Auto) 0.1 Baso # (Auto) 0.1 Nucleated RBC % (a uto) 0.3 Nucleated RBCs # 0.0 Sodium Potassium Chloride Carbon Dioxide Anion Gap BUN Creatinine GFR Calculation Glucose Calculated Osmolal ity Calcium Total Bilirubin AST ALT Alkaline Phosphata se Total Protein Albumin Globulin HCG, Qual Blood Type O Positive Rho(D) Type Positive Antibody Screen Negative Crossmatch See Detail Vitals: Last Vital Signs Temp 97 F L 02/08/20 11:53 Pulse 93 02/08/20 11:53 Resp 20 H 02/08/20 11:53 BP 161/105 02/08/20 11:53 Pulse Ox 98 02/08/20 11:53 Discharge Plan Discharge Patient Disposition: Home Condition: Stable Prescriptions: New pantoprazole [Protonix] 40 mg tablet,delayed release (DR/EC) 40 mg PO BID 14 Days Qty: 28 RF: 0 Continued spironolactone 25 mg tablet 25 mg PO DAILY PRN (Reason: unknown) RF: 0 amlodipine 5 mg tablet 5 mg PO DAILY RF: 0 carvedilol 12.5 mg tablet 18.75 mg PO BID RF: 0 clopidogrel [Plavix] 75 mg tablet 75 mg PO DAILY RF: 0 rosuvastatin 20 mg tablet 20 mg PO DAILY RF: 0 ascorbic acid (vitamin C) 500 mg capsule 500 mg PO BID RF: 0 niacin 500 mg Tablet 500 mg PO BID RF: 0 Elderberry Tab 1 tab PO BID RF: 0 Discontinued aspirin [Adult Low Dose Aspirin] 81 mg tablet,delayed release (DR/EC) 81 mg PO DAILY RF: 0 Referrals: Carmen Hassan FNP-C [Primary Care Provider] - Coding Level of Care Code Acute Photographic Aide for [facility] Fwd Diagnoses Gastric ulcer K25.4 Gastric ulcer chronicity: unspecified ulcer chronicity Gastric ulcer complication status: with hemorrhage GI bleed K62.5 GI bleed type/associated pathology: anorectal hemorrhage Anemia D64.9 Anemia type: unspecified type
[2020-02-08] MEDS: potassium chloride ER 10 mEq Tablet 40 MEQ PO (14:00)
== END 2020-02-08 17:30 | disposition home or self-care (01) | DRG 379 ==
LOC: ER 21:33 → MEDSURG 22:09
PROVIDERS: Emergency Medicine; Surgery; Admitting Provider Internal Medicine; PCP Nurse Practitioner Family; Visit Provider Student in an Organized Health Care Education/Training Program
PROC: 0DJ08ZZ Inspection of Upper Intestinal Tract, Via Natural or Artificial Opening Endoscopic (ICD-10-PCS; CPT 43235; principal; 2020-02-08 13:00)
PROC: 0DJD8ZZ Inspection of Lower Intestinal Tract, Via Natural or Artificial Opening Endoscopic (ICD-10-PCS; CPT 45378; 2020-02-08 13:00)
DX: K25.4 Chronic or unspecified gastric ulcer with hemorrhage (principal); K62.5 Hemorrhage of anus and rectum; D64.9 Anemia, unspecified; Z79.82 Long term (current) use of aspirin; Z79.02 Long term (current) use of antithrombotics/antiplatelets; I73.9 Peripheral vascular disease, unspecified; Z95.820 Peripheral vascular angioplasty status with implants and grafts; K63.5 Polyp of colon; Z80.0 Family history of malignant neoplasm of digestive organs; I10 Essential (primary) hypertension; M19.90 Unspecified osteoarthritis, unspecified site; Z87.11 Personal history of peptic ulcer disease; E78.5 Hyperlipidemia, unspecified; F17.210 Nicotine dependence, cigarettes, uncomplicated; K64.8 Other hemorrhoids
CPT/HCPCS: 12345; 36415; 36430; 43239; 45380; 80048; 80053; 82274; 82607; 82728; 82746; 83540; 83550; 84132; 84443; 84484; 84703; 85025; 85610; 85730; 86850; 86900; 86920; 88305; 93005; 93306; 96375; 99283; C9113; G0378; J2704; J3480; J7030; P9016

== ENCOUNTER → 2020-09-23 12:11 | Outpatient (BNVA) | payer MEDICARE, SELFPAY | PROVIDERS: PCP Nurse Practitioner Family; Referring Provider General Practice; Visit Provider Specialist | DX: S59.902A Unspecified injury of left elbow, initial encounter (principal); S69.92XA Unspecified injury of left wrist, hand and finger(s), initial encounter; X58.XXXA Exposure to other specified factors, initial encounter; Z46.89 Encounter for fitting and adjustment of other specified devices; S52.132D Displaced fracture of neck of left radius, subsequent encounter for closed fracture with routine healing; X58.XXXD Exposure to other specified factors, subsequent encounter | CPT/HCPCS: 73080; 73110; 97760; L3761 ==

== ENCOUNTER 2020-09-23 14:33 | Outpatient (CLI) | payer MEDICARE, SELFPAY | END 2020-09-23 14:34 | disposition home or self-care (01) | LOC: SPT 14:34 | PROVIDERS: PCP Nurse Practitioner Family; Visit Provider Specialist | DX: Z46.89 Encounter for fitting and adjustment of other specified devices (principal); S52.132D Displaced fracture of neck of left radius, subsequent encounter for closed fracture with routine healing; X58.XXXD Exposure to other specified factors, subsequent encounter | CPT/HCPCS: 97760; L3761 ==

== ENCOUNTER → 2020-10-03 08:26 | Outpatient (BNVA) | payer MEDICARE, SELFPAY | PROVIDERS: PCP Nurse Practitioner Family; Visit Provider Specialist | DX: S52.122A Displaced fracture of head of left radius, initial encounter for closed fracture; W22.8XXA Striking against or struck by other objects, initial encounter | CPT/HCPCS: 73080 ==

== ENCOUNTER 2020-10-08 10:59 | Outpatient (CLI) | payer MEDICARE, SELFPAY ==
--- NOTE | 2020-10-08 11:07 | CT_ITS ---
WS: [id number] LDCT LUNG CANCER SCREENING TECHNIQUE: Noncontrast CT of the chest with coronal and sagittal reformatted images. CLINICAL INFORMATION: NICOTINE DEPENDENCE,CIGARETTES COMPARISON: None. DLP: 56.56 mGy.cm DIvol: 1.[address] scans at [facility] use at least one of these dose optimization techniques: automat ed exposure control; mA and/or kV adjustment per patient size (includes targeted exams where dose is matched to clinical indication); or iterative reconstruction. FINDINGS: Chronic emphysematous changes. Bibasilar atelectasis. No suspicious pulmonary parenchymal o pacities. Ectatic ascending thoracic aorta measuring 3.6 cm. Aortic calcification. No mediastinal or hilar lymp hadenopathy. Low-attenuation lesions in the liver likely hepatic cysts. The largest left hepatic lobe measuring 1. 7 CM. Adrenal lesion is nonspecific but most likely adenoma measuring 2.6 cm. Small esophageal hiatal herni a.Thoracic kyphosis with degenerative changes in the mid thoracic spine. CT/CT lung screening [id number] IMPRESSION: LUNG-RADS: 2-Benign Appearance or Behavior FOLLOW UP: 12 Month: Continue annual screening with LDCT
== END 2020-10-08 11:00 | disposition home or self-care (01) ==
LOC: RAD 11:04
PROVIDERS: PCP Nurse Practitioner Family; Visit Provider Nurse Practitioner Family
DX: Z12.2 Encounter for screening for malignant neoplasm of respiratory organs (principal); F17.210 Nicotine dependence, cigarettes, uncomplicated; K44.9 Diaphragmatic hernia without obstruction or gangrene; M40.294 Other kyphosis, thoracic region
CPT/HCPCS: 71271

== ENCOUNTER → 2020-10-21 13:20 | Outpatient (BNVA) | payer MEDICARE, SELFPAY | PROVIDERS: PCP Nurse Practitioner Family; Visit Provider Specialist | DX: S52.123D Displaced fracture of head of unspecified radius, subsequent encounter for closed fracture with routine healing (principal); S52.122D Displaced fracture of head of left radius, subsequent encounter for closed fracture with routine healing; X58.XXXD Exposure to other specified factors, subsequent encounter | CPT/HCPCS: 73080 ==

== ENCOUNTER 2021-04-14 08:17 | Outpatient (CLI) | payer MEDICARE, SELFPAY ==
--- NOTE | 2021-04-14 08:45 | USCV_ITS ---
Chiquita Monroe Age: 60 Gender: F : 1960 Exam Date: 04/14/2021 08:43 Ordering Phys: Carmen Hassan Technologist: Exam Location: [facility] – [place] Indication: Aortic Velocity @ SMA (cm/s) 55.8 RIGHT KIDNEY LEFT KIDNEY Velocity (cm/s) Velocity (cm/s) Sys/Wallace Sys/Wallace Resistive Index Resistive Index 69.9 / 22.1 0.68 Proximal Renal Artery 32.4 / 11.0 0.66 53.1 / 17.7 0.67 Mid Renal Artery 96.4 / 28.6 0.70 77.0 / 23.9 0.69 Distal Renal Artery 103.0 / 34.3 0.67 69.9 / 23.0 0.67 Hilar 91.3 / 27.1 0.70 65.5 / 15.0 0.77 Upper Pole 61.6 / 16.8 0.73 62.0 / 15.9 0.74 Mid Pole 80.0 / 20.8 0.74 68.3 / 15.6 0.77 Lower Pole 65.6 / 12.8 0.80 1.40 Renal Aortic Ratio 1.85 Accleration Index (cm/sec2) 1136.0 Hilar 1174.0 0 0 1261.0 Upper Pole 1309.0 0 0 1457.0 Mid Pole 1382.0 0 0 1511.0 Lower Pole 964.00 0 102.8 Kidney Length (mm) 100.4 FINDINGS Comparison, 05/04/18. No evidence of abdominal aortic aneurysm. Normal size kidneys. There is no evidence of hemodynamically significant right renal artery stenosis. There is no evidence of hemodynamically significant left renal artery stenosis. CONCLUSIONS No sonographic evidence of hemodynamically significant renal artery stenosis bilaterally. Dr. Colette Ley DO (Electronically Signed) Final Date: 14 April 2021 11:26 S
== END 2021-04-14 08:18 | disposition home or self-care (01) ==
LOC: RAD 08:21
PROVIDERS: PCP Nurse Practitioner Family; Visit Provider Nurse Practitioner Family
DX: N28.9 Disorder of kidney and ureter, unspecified (principal)
CPT/HCPCS: 93975

== ENCOUNTER → 2021-11-03 15:51 | Outpatient (BNVA) | payer MEDICARE, SELFPAY | PROVIDERS: PCP Nurse Practitioner Family; Visit Provider Internal Medicine | DX: I73.9 Peripheral vascular disease, unspecified (principal); I10 Essential (primary) hypertension; F17.210 Nicotine dependence, cigarettes, uncomplicated | CPT/HCPCS: 99213 ==

== ENCOUNTER 2021-11-26 09:35 | Outpatient (CLI) | payer MEDICARE, SELFPAY ==
--- NOTE | 2021-11-26 09:47 | CT_ITS ---
WS: [id number] LDCT LUNG CANCER SCREENING HISTORY: NICOTINE DEPENDENCE, CIGARETTES TECHNIQUE: Axial imaging performed from the apices to 1 cm below the costophrenic angles. Coronal and sagittal reformats are submitted with axial MIP series. All CT scans at [facility] use at least one of these dose optimization techniques: automated exposure control; mA and/or kV adjustment per patient size (includes targeted exams where dose is matched to clinical indication); or iterativ e reconstruction. DLP: 82.18 mGy.cm DIvol: Mean CTDIvol: 1.60 (mGy) COMPARISON: 10/08/2020 Diagnostic quality: Satisfactory Lung Nodules: No pulmonary nodule or mass. Lungs: Hyperexpanded lungs with emphysema. Heart: Normal size heart. No pericardial effusion. Other findings: No mediastinal or hilar lymph nodes. Small hiatal hernia. Stable low-attenuation lesi on in the LEFT lobe of the liver measures 2.7 cm. Consistent with a cyst. Additional smaller hypodens ity. Splenic granulomata. No change in size of the LEFT adrenal nodule. CT/CT lung screening [id number] IMPRESSION: LUNG-RADS: 1-Negative FOLLOW UP: 12 Month: Continue annual screening with LDCT OTHER FINDINGS (S MODIFIER): None.
== END 2021-11-26 09:36 | disposition home or self-care (01) ==
PROVIDERS: PCP Registered Nurse; Visit Provider Nurse Practitioner Family
DX: Z12.2 Encounter for screening for malignant neoplasm of respiratory organs (principal); F17.210 Nicotine dependence, cigarettes, uncomplicated
CPT/HCPCS: 71271

== ENCOUNTER → 2022-03-03 13:40 | Outpatient (BNVA) | payer MEDICARE, SELFPAY | PROVIDERS: PCP Registered Nurse; Visit Provider Internal Medicine | DX: E27.8 Other specified disorders of adrenal gland (principal); I10 Essential (primary) hypertension; F17.210 Nicotine dependence, cigarettes, uncomplicated | CPT/HCPCS: 82088; 84244; 99214 ==

== ENCOUNTER → 2022-08-10 14:30 | Outpatient (BNVA) | payer MEDICARE, SELFPAY | PROVIDERS: PCP Registered Nurse; Visit Provider Internal Medicine | DX: I73.9 Peripheral vascular disease, unspecified (principal); I10 Essential (primary) hypertension; I34.0 Nonrheumatic mitral (valve) insufficiency; F17.200 Nicotine dependence, unspecified, uncomplicated | CPT/HCPCS: 99214 ==

== ENCOUNTER 2022-09-08 12:22 | Outpatient (CLI) | payer MEDICARE, SELFPAY ==
--- NOTE | 2022-09-08 12:45 | USCV_ITS ---
Chiquita Monroe Age: 61 Gender: F : 1960 Exam Date: 09/08/2022 12:44 Ordering Phys: Manny Slaughter M.D ([email or web address]) Technologist: [place] [facility] [place]: BP: 130 / 80 HR: 41 Rhythm: Sinus Technical Quality: adequate MEASUREMENTS (Male / Female) Normal Values 2D ECHO LV Diastolic Diameter PLAX 4.4 cm 4.2 - 5.9 / 3.9 - 5.3 cm LV Systolic Diameter PLAX 3.1 cm IVS Diastolic Thickness 1.0 cm 0.6 - 1.0 / 0.6 - 0.9 cm IVS Systolic Thickness 1.7 cm LVPW Diastolic Thickness 1.2 cm 0.6 - 1.0 / 0.6 - 0.9 cm LVPW Systolic Thickness 1.1 cm LVOT Diameter 2.0 cm LV Ejection Fraction 2D Teich 54.8 % LV Ejection Fraction MOD 2C 76.9 % LV Ejection Fraction 2C AL 76.7 % LA Diameter 4.0 cm Aorta at Sinotubular Diameter 2.2 cm IVC Diameter 1.1 cm M-MODE Aortic Annulus Diameter 3.6 cm LA Ao Ratio MM 1.3 MV E Point Septal Separation 0.8 cm DOPPLER AV Peak Velocity 220.0 cm/s LVOT Peak Velocity 153.0 cm/s AV Area Cont Eq vti 2.4 cm squared AV Area Cont Eq pk 2.3 cm squared TR Peak Velocity 146.0 cm/s TR Peak Gradient 8.5 mmHg TV Peak E Velocity 86.0 cm/s Right Atrial Pressure 3.0 mmHg Pulmonary Artery Systolic Pressu 11.5 mmHg RV Acceleration Time 0.2 s FINDINGS Left Ventricle Normal left ventricular size, systolic function and wall thickness, with no regional wall motion abnormalities. Grade I/IV diastolic dysfunction (abnormal relaxation filling pattern), normal to mildly elevated filling pressures. Left ventricular ejection fraction is estimated at 65 %. Right Ventricle Normal right ventricular size and systolic function. Normal right ventricular systolic pressure. Right Atrium Mildly increased right atrial size. Left Atrium Mildly increased left atrial size. Mitral Valve Structurally normal mitral valve. There is at least moderate mitral regurgitation. The jet is directed posteriorly so it may be moderate to severe regurgitation. Suggestion of prolapse of the anterior mitral valve leaflet. Aortic Valve Structurally normal trileaflet aortic valve. No aortic valve stenosis. [id number] aortic valve regurgitation. Tricuspid Valve Structurally normal tricuspid valve without significant stenosis or regurgitation. Pulmonary artery systolic pressure is normal. Pulmonic Valve Pulmonic valve not well visualized. Pericardium Normal pericardium without effusion. Aorta Normal ascending aorta dimension. IVC The inferior vena cava appears normal. CONCLUSIONS Normal left ventricular size, systolic function and wall thickness, with no regional wall motion abnormalities. Grade I/IV diastolic dysfunction (abnormal relaxation filling pattern), normal to mildly elevated filling pressures. Left ventricular ejection fraction is estimated at 65 %. Mildly increased right atrial size. Mildly increased left atrial size. Structurally normal mitral valve. There is at least moderate mitral regurgitation. The jet is directed posteriorly so it may be moderate to severe regurgitation. Suggestion of prolapse of the anterior mitral valve leaflet. Structurally normal trileaflet aortic valve. No aortic valve stenosis. [id number] aortic valve regurgitation. This study is unchanged from the previous study dictated 02/07/2020 Dr. Brian Guadalupe MD (Electronically Signed) Final Date: 08 September 2022 17:45 S
== END 2022-09-08 12:23 | disposition home or self-care (01) ==
LOC: RAD 12:26
PROVIDERS: PCP Registered Nurse; Visit Provider Internal Medicine
DX: R01.1 Cardiac murmur, unspecified (principal); I08.0 Rheumatic disorders of both mitral and aortic valves
CPT/HCPCS: 93306

== ENCOUNTER 2023-01-08 13:07 | Outpatient (CLI) | payer MEDICARE, SELFPAY ==
--- NOTE | 2023-01-08 13:24 | CT_ITS ---
WS: [id number] LDCT LUNG CANCER SCREENING HISTORY: HX OF TOBACCO USE/NICOTINE DEPENDENCE, CIGARETTES TECHNIQUE: Axial imaging performed from the apices to 1 cm below the costophrenic angles. Coronal and sagittal reformats are submitted with axial MIP series. All CT scans at [facility] use at least one of these dose optimization techniques: automated exposure control; mA and/or kV adjustment per patient size (includes targeted exams where dose is matched to clinical indication); or iterativ e reconstruction. DLP: 39.50 mGy.cm DIvol: Mean CTDIvol: 0.50 (mGy) COMPARISON: 11/26/2021 Diagnostic quality: Satisfactory Lungs: No pulmonary nodule or mass. Stable perifissural nodule along the minor fissure. Mild dependen t changes at the lung bases. No endobronchial lesions. Heart: Normal size heart with no pericardial effusion.. No pericardial effusion. Other findings: Mild atherosclerosis aorta. Similar to the prior studies. No mediastinal or hilar tiffany nopathy. Low-attenuation lesion LEFT lobe of the liver measures 2.5 x 1.8 cm and has been present on prior studies. There is an additional smaller low-attenuation lesion in the LEFT lobe. LEFT adrenal m ass is reidentified in stable. CT/CT lung screening [id number] IMPRESSION: LUNG-RADS: 1-Negative FOLLOW UP: 12 Month: Continue annual screening with LDCT OTHER FINDINGS (S MODIFIER): None.
== END 2023-01-08 13:08 | disposition home or self-care (01) ==
LOC: RAD 13:11
PROVIDERS: PCP Registered Nurse; Visit Provider Internal Medicine Pulmonary Disease
DX: Z12.2 Encounter for screening for malignant neoplasm of respiratory organs (principal); F17.210 Nicotine dependence, cigarettes, uncomplicated; K76.9 Liver disease, unspecified
CPT/HCPCS: 71271

== ENCOUNTER 2024-01-20 10:57 | Outpatient (CLI) | payer MEDICARE, SELFPAY ==
--- NOTE | 2024-01-20 11:07 | CT_ITS ---
WS: [id number] LDCT LUNG CANCER SCREENING TECHNIQUE: Noncontrast CT of the chest with coronal and sagittal reformatted images. CLINICAL INFORMATION: HX OF TOBACCO USE/NICOTINE DEPENDENCE,CIGARETTES COMPARISON: CT 2022 DLP: 47.81 mGy.cm DIvol: Mean CTDIvol: 0.80 (mGy) All CT scans at [facility] use at least one of these dose optimization techniques: automat ed exposure control; mA and/or kV adjustment per patient size (includes targeted exams where dose is matched to clinical indication); or iterative reconstruction. FINDINGS: Stable nodule along the RIGHT fissure measuring 6 mm. Subsegmental atelectasis in the lung bases. Noncalcified slightly spiculated nodule inferior segment RIGHT upper lobe measuring 6 mm. This is new from previous. Recommend 3-month follow-up. Aortic calcification. Prominent ascending thoracic aorta measuring 3.5 cm unchanged. Coronary calcifi cation. No axillary lymphadenopathy. Small esophageal hiatal hernia. No mediastinal or hilar lymphadenopathy. Mild aortic calcification. Incidental hepatic cysts. Stable LEFT adrenal nodule. Mild thoracic kyphosis. CT/CT lung screening [id number] IMPRESSION: New slightly spiculated nodule in the inferior segment RIGHT upper lobe measuring 6 mm. Recommend 3-month follow-up. LUNG-RADS: 4A-Probably Suspicious FOLLOW UP: 3 Month LDCT
== END 2024-01-20 10:58 | disposition home or self-care (01) ==
LOC: RAD 10:58
PROVIDERS: PCP Registered Nurse; Visit Provider Nurse Practitioner Family
DX: Z12.2 Encounter for screening for malignant neoplasm of respiratory organs (principal); Z87.891 Personal history of nicotine dependence; R91.1 Solitary pulmonary nodule; J98.11 Atelectasis; K44.9 Diaphragmatic hernia without obstruction or gangrene; K76.89 Other specified diseases of liver; E27.8 Other specified disorders of adrenal gland; M40.204 Unspecified kyphosis, thoracic region
CPT/HCPCS: 71271

== ENCOUNTER → 2024-02-15 14:07 | Outpatient (BNVA) | payer MEDICARE, SELFPAY | PROVIDERS: PCP Registered Nurse; Visit Provider Internal Medicine | DX: I73.9 Peripheral vascular disease, unspecified (principal); I34.0 Nonrheumatic mitral (valve) insufficiency; I10 Essential (primary) hypertension; Z72.0 Tobacco use | CPT/HCPCS: 99214 ==

== ENCOUNTER 2024-03-16 12:25 | Outpatient (CLI) | payer MEDICARE, SELFPAY ==
--- NOTE | 2024-03-16 12:30 | USCV_ITS ---
Chiquita Monroe Age: 63 Gender: F : 1960 Exam Date: 03/16/2024 12:41 Ordering Phys: Manny Slaughter M.D ([email or web address]) Technologist: CARLOS Exam Location: [facility] – [place], [place] Indication: Recheck on MR BP: / HR: 73 Rhythm: Sinus Technical Quality: Adequate MEASUREMENTS (Male / Female) Normal Values 2D ECHO LV Diastolic Diameter PLAX 4.6 cm 4.2 - 5.9 / 3.9 - 5.3 cm LV Systolic Diameter PLAX 3.9 cm IVS Diastolic Thickness 1.2 cm 0.6 - 1.0 / 0.6 - 0.9 cm IVS Systolic Thickness 1.4 cm LVPW Diastolic Thickness 1.1 cm 0.6 - 1.0 / 0.6 - 0.9 cm LVPW Systolic Thickness 1.4 cm LVOT Diameter 2.0 cm LV Ejection Fraction 2D Teich 30.6 % LV Ejection Fraction MOD 4C 66.5 % LV Ejection Fraction MOD 2C 44.4 % LV Ejection Fraction 2C AL 44.4 % LA Diameter 5.5 cm RA Systolic Volume 4C AL 12.1 ml RA Systolic Volume 4C MOD 11.4 ml LA Sys Volume AL 29.3 cm cubed LA Sys Volume Index AL 16.7 cm cubed/m squared Aorta at Sinotubular Diameter 3.3 cm IVC Diameter 1.0 cm M-MODE LA Ao Ratio MM 1.1 AV Cusp Separation MM 1.9 cm DOPPLER AV Peak Velocity 229.0 cm/s LVOT Peak Velocity 200.0 cm/s AV Area Cont Eq vti 2.8 cm squared AV Area Cont Eq pk 2.8 cm squared MV Area PHT 4.6 cm squared Mitral E to A Ratio 0.7 TV Peak Velocity 172.5 cm/s TR Peak Velocity 217.0 cm/s TR Peak Gradient 18.8 mmHg TR Mean Velocity 110.0 cm/s TR Mean Gradient 6.9 mmHg TR Velocity Time Integral 52.0 cm TV Peak E Velocity 42.0 cm/s Right Atrial Pressure 3.0 mmHg Pulmonary Artery Systolic Pressu 21.8 mmHg PV Peak Velocity 82.0 cm/s FINDINGS Left Ventricle Normal left ventricular size, systolic function and wall thickness, with no regional wall motion abnormalities. Left ventricular ejection fraction is estimated at 60 %. Grade I/IV diastolic dysfunction (abnormal relaxation filling pattern), normal to mildly elevated filling pressures. Right Ventricle The right ventricle is normal in size and function. Right Atrium The right atrium is normal in size. Left Atrium The left atrium is normal in size. Mitral Valve Mildly thickened mitral valve. Mild-moderate mitral valve regurgitation. Aortic Valve Severe aortic valve calcification. Mild aortic valve stenosis, mean gradient 12.3 mmHg, NICHOLAS 2.8 cm squared. Trace aortic valve regurgitation. Tricuspid Valve Mild tricuspid valve regurgitation. Pulmonic Valve Structurally normal pulmonic valve without significant stenosis. There is no pulmonic regurgitation. Pericardium Normal pericardium without effusion. Aorta Normal ascending aorta dimension. IVC The inferior vena cava appears normal. CONCLUSIONS Normal left ventricular size, systolic function and wall thickness, with no regional wall motion abnormalities. Left ventricular ejection fraction is estimated at 60 %. Grade I/IV diastolic dysfunction (abnormal relaxation filling pattern), normal to mildly elevated filling pressures. Mildly thickened mitral valve. Mild-moderate mitral valve regurgitation. Mild tricuspid valve regurgitation. There is no pericardial effusion. Right atrial pressure is around 5 mm of mercury. Neal Vilchis MD (Electronically Signed) Final Date: 16 March 2024 21:24 S
== END 2024-03-16 12:26 | disposition home or self-care (01) ==
LOC: RAD 12:25
PROVIDERS: PCP Registered Nurse; Visit Provider Internal Medicine
DX: I34.0 Nonrheumatic mitral (valve) insufficiency (principal); I50.30 Unspecified diastolic (congestive) heart failure; I35.8 Other nonrheumatic aortic valve disorders
CPT/HCPCS: 93306

== ENCOUNTER 2024-05-10 10:33 | Outpatient (CLI) | payer MEDICARE, SELFPAY ==
--- NOTE | 2024-05-10 10:42 | CTR_ITS ---
PROCEDURE INFORMATION: Exam: CT Chest Without Contrast; Diagnostic Exam date and time: 05/10/2024 10:46 AM Age: 63 years old Clinical indication: Condition or disease; Lung condition and disease; Pulmonary nodule, solitary; Additional info: Solitary pulmonary nodule TECHNIQUE: Imaging protocol: Diagnostic computed tomography of the chest without contrast. Radiation optimization: All CT scans at this facility use at least one of these dose optimization techniques: automated exposure control; mA and/or kV adjustment per patient size (includes targeted exams where dose is matched to clinical indication); or iterative reconstruction. COMPARISON: 1. CT lung screening [id number] 01/20/2024 11:[address] lung screening [id number] 11/26/2021 10:[address] lung screening [id number] 01/08/2023 1:34 PM RADIATION DOSE METRICS: Total DLP (mGy-cm): 241.69 FINDINGS: Limitations: This study is done with a different protocol than the prior examination using 5 mm thick slices rather than 1 mm thick slices. This may decrease the sensitivity of the examination for smaller pulmonary nodules. Lungs: There is a 5 mm perifissural nodule along the minor fissure in the middle lobe not significantly changed. 4 mm nodular is seen in the posterior segment right upper lobe such as on series 3, image number 25. This is smaller than on 01/20/2024 and has the appearance on the current study of a small area of scarring. This may have been due to focal inflammatory nodule and the decrease in size reflects benign etiology although exact comparison between studies is difficult due to thicker slices done on today's examination. Due to the difference it may be prudent to obtain six-month follow-up examination done using thinner slices similar to the 01/20/2024 exam. No new pulmonary nodule is demonstrated. Pleural spaces: Unremarkable. No pneumothorax. No pleural effusion. Heart: Heart is within normal limits of size. Coronary arteries: There is mild atherosclerotic calcification of the coronary arteries. Lymph nodes: There is no evidence of lymphadenopathy. Vasculature: There is atherosclerotic calcification of the ascending and descending thoracic aorta. There is no thoracic aortic aneurysm. Liver: There is a 2.5 cm sized cyst left lobe of the liver not significantly changed from 01/20/2024 or 01/08/2023. Bones/joints: Unremarkable. No acute fracture. Soft tissues: Unremarkable. CT/CT chest wo con [id number] IMPRESSION: The right upper lobe nodule in question appears smaller than on 01/20/2024 suggesting benign etiology. Suggest additional six-month follow-up with thinner slices to resolution of this finding.
== END 2024-05-10 10:34 | disposition home or self-care (01) ==
PROVIDERS: PCP Registered Nurse; Visit Provider Nurse Practitioner Family
DX: R91.1 Solitary pulmonary nodule (principal); N28.1 Cyst of kidney, acquired
CPT/HCPCS: 71250

== ENCOUNTER 2025-06-27 15:19 | Emergency (ER) | payer MEDICARE, SELFPAY ==
[2025-06-27 15:09] VITALS: BP 172/84; PULSE 90; RESP 15; TEMP 36.5; O2SAT 93; BMI 19.0
--- NOTE | 2025-06-27 15:20 | XRR_ITS ---
PROCEDURE INFORMATION: Exam: XR Chest Exam date and time: 06/27/2025 3:21 PM Age: 64 years old Clinical indication: Other: Weakness TECHNIQUE: Imaging protocol: Radiologic exam of the chest. Views: 1 view. COMPARISON: CT chest con [id number] 05/10/2024 10:46 AM FINDINGS: Lungs: Unremarkable. No consolidation. Pleural spaces: Unremarkable. No pleural effusion. No pneumothorax. Heart/Mediastinum: Unremarkable. No cardiomegaly. Bones/joints: Unremarkable. XR/XR chest 1V portable [id number] IMPRESSION: No acute findings.
--- NOTE | 2025-06-27 15:22 | ED_ITS ---
HPI - Weakness 2 General: Chief complaint: Weakness Stated complaint: weak History of Present Illness: Patient is 64-year-old smoker, drinks a pint of alcohol/vodka daily, HTN, PAD, presents to the emergency room due to weakness. Context: Patient was drinking at home, fell, and could not get back up. EMS was summoned. She was able to get up with help. She denies any injury. She denies any pain. She stated she fell on her buttocks. Denies any muscle spasms. She states she did have pneumonia last week. Denies any cough, sputum production, fever. No shortness of breath. No chest discomfort. Denies any dysuria. No exposure to sick illness that she is aware of. She presents to the emergency room via EMS. EMS noted blood glucose of 49 arrival. Patient was initially found on her porch by her neighbor. Neighbor summoned EMS. Patient does not have any complaints at time my evaluation. Blood glucose came up to 120 after D10, and per EMS dropped to 88. She is currently eating a sandwich and orange juice. Provider note indicates that she was diagnosed with pneumonia 06/01. Associated symptoms: Denies chest pain, confusion, fever(s), headache(s), nausea or vomiting Related Data Home Medications ?Medication ?Instructions ?Recorded ?Confirmed clopidogrel 75 mg tablet (Plavix) 75 mg PO DAILY 08/2206/01/25 rosuvastatin 20 mg tablet 20 mg PO DAILY 08/22/1905/06 losartan 50 mg tablet 50 mg PO DAILY 02/28/2105/06 atenolol 100 mg tablet 100 mg PO DAILY 11/03/21 hydrochlorothiazide 25 mg tablet 25 mg PO DAILY 06/01/25 amlodipine 5 mg tablet 10 mg PO DAILY 03/03/2205/06 Previous Rx's ?Medication ?Instructions ?Recorded Hinged Elbow Brace #1 ea 09/23/20 pantoprazole 40 mg tablet,delayed 40 mg PO DAILY #30 t abs 03/24/21 release (Protonix) albuterol sulfate 90 mcg/actuation 2 inh inhalation Q4 H PRN shortness 06/01/25 aerosol inhaler (Ventolin HFA) of breath or wheezing # 6.7 grams cefdinir 300 mg capsule 300 mg PO BID 10 days #20 ca ps 06/01/25 prednisone 20 mg tablet 20 mg PO DAILY 5 days #15 ta bs 06/01/25 Allergies Allergy/AdvReac Type Severity Reaction Status Date / Time morphine Allergy Severe Nereida Verified 06/01/25 14:01 erythromycin base Allergy Unknown Unknown Verified 06/01/25 14:01 azithromycin (From Zithromax) Allergy Unknown Verified 06/01/25 14:01 Review of Systems 2 General: Reports: 10 or more systems reviewed and unremarkable except in HPI and below Const: Reports: fatigue and malaise; Denies: fever(s) ENMT: Denies: throat pain, ear or mastoid pain, nasal congestion or sinus pain Card: Denies: chest pain, palpitations or swelling of feet/ankles Resp: Denies: dyspnea, productive cough or chest congestion GI: Denies: abdominal pain, nausea, vomiting or diarrhea : Denies: flank pain or difficulty voiding Musc: Denies: neck pain, back pain, extremity pain, extremity swelling, joint pain, joint warmth or joint stiffness Skin/Breast: Denies: rash Neuro: Reports: lack of coordination, difficulty walking and frequent falls; Denies: headache(s), numbness in extremities, weakness in extremities, sensory changes, dizziness, vertigo, confusion, behavioral changes, Slurred speech present, difficulty communicating thoughts, seizure-like activity, involuntary movements or restless legs PFSH ED 2 PFSH: Medical History (Updated 06/27/25 @ 16:30 by KIMBERLEE Holcomb) Peptic ulcer disease EGD around 2004 demonstrating ulcer S/P angiogram of extremity History of SFA stenting Hyperlipidemia DJD (degenerative joint disease) LVH (left ventricular hypertrophy) HTN (hypertension) PAD (peripheral artery disease) Surgical History History of colonoscopy 2019 History of esophagogastroduodenoscopy (EGD) 2020 S/P appendectomy Family History Father Peripheral vascular disease FH: CABG (coronary artery bypass surgery) Mother Hypertension Atrial fibrillation Social History Smoking and tobacco/nicotine status: current every day tobacco/nicotine user cigarettes Alcohol intake: current Substance/Drug Use: never Physical Exam 2 Const: COMMON NORMALS: no acute distress and patient oriented x3 GENERAL APPEARANCE: cooperative; not in distress HENMT: COMMON NORMALS: normocephalic HEAD & SCALP: normal to inspection and normocephalic MOUTH: Normal oral and palatal mucosa present and lip normal THROAT: posterior oropharynx normal and tonsils normal Neck/C-Spine: COMMON NORMALS: supple and no meningeal signs GENERAL: Yes normal visual inspection and Yes trachea midline Chest: COMMONS NORMALS: normal inspection of the chest Resp: COMMON NORMALS: normal respiratory effort EFFORT & INSPECTION: Yes able to speak in complete sentences and No respiratory distress AUSCULTATION: no rales, no rhonchi, wheezes expiratory wheezes and right lower and diminished lung sounds Cardio: COMMON NORMALS: regular rate, regular rhythm, S1 normal heart sound present, S2 normal heart sound present and No murmurs present (Cardio) RATE: regular rate RHYTHM: regular rhythm HEART SOUNDS: S1 normal heart sound present and S2 normal heart sound present Extremity: COMMON NORMALS: normal to inspection and capillary refill normal Neuro: COMMON NORMALS: patient oriented x3, moves all extremities and no focal motor deficits MENINGEAL SIGNS: Yes no meningeal signs Skin: COMMON NORMALS: no rashes or lesions noted GENERAL SKIN EXAM: no rashes or lesions noted Course 2 Reevaluation(s): Reevaluation #1: Doing better after turkey sandwich, and orange juice. Blood glucose is 127 Vital Signs: Vital signs: Vital Signs Temperature 97.7 F 06/27/25 15:09 Pulse Rate 90 06/27/25 17:31 Respiratory Rate 15 06/27/25 15:09 Blood Pressure 172/84 06/27/25 15:09 Pulse Oximetry 95 06/27/25 17:31 Oxygen Delivery Me thod Room Air 06/27/25 15:09 MDM - Weakness Medical Decision Making Patient is a pleasant 64-year-old female that admittedly drinks alcohol. Potassium is low, as well as mild metabolic acidosis, and magnesium on the lower side. She received 1 L IV fluid, 40 mill equivalents of potassium, and 2 g of magnesium sulfate. She is feeling improved after intervention. Lab Data 06/27/25 15:32 06/27/25 15:32 Radiology Impressions Chest X-Ray 06/27/25 15:20 IMPRESSION: No acute findings. Laboratory Results WBC 4.43 10^3/uL (3.29-11.43) 06/27/25 15:32 RBC 3.87 10^6/uL (3.85-5.65) 06/27/25 15:32 Hgb 12.70 g/dL (11.27-16.99) 06/27/25 15:32 Hct 37.4 % (36-47) 06/27/25 15:32 MCV 96.6 fl (85-98) 06/27/25 15:32 MCH 32.8 pg (27-33) 06/27/25 15:32 MCHC 34.0 g/dL (30-55) 06/27/25 15:32 RDW 15.9 % (12.1-15.1) H 06/27/25 15:32 Plt Count 375 10^3/cmm (157-399) 06/27/25 15:32 MPV 9.2 fL (7.4-10.4) 06/27/25 15:32 Neut % (Auto) 56.7 % 06/27/25 15:32 Lymph % (Auto) 28.9 % 06/27/25 15:32 [place]aden % (Auto) 12.4 % 06/27/25 15:32 Eos % (Auto) 0.2 % 06/27/25 15:32 Baso % (Auto) 1.6 % 06/27/25 15:32 Neut # (Auto) 2.51 10^3/uL (1.8-7.7) 06/27/25 15:32 Lymph # (Auto) 1.3 10^3/uL (0.8-4.8) 06/27/25 15:32 Bladen # (Auto) 0.6 10^3/uL (0.2-0.9) 06/27/25 15:32 Eos # (Auto) 0.0 10^3/uL (0.0-0.8) 06/27/25 15:32 Baso # (Auto) 0.1 10^3/uL (0.0-0.1) 06/27/25 15:32 Nucleated RBC % (auto) 0 % 06/27/25 15:32 Nucleated RBCs # 0.0 /100WBC 06/27/25 15:32 Sodium 139 mmol/L (136-145) 06/27/25 15:32 Potassium 3.0 mmol/L (3.5-5.1) L 06/27/25 15:32 Chloride 96 mmol/L (98-107) L 06/27/25 15:32 Carbon Dioxide 19 mmol/L (22-29) L 06/27/25 15:32 Anion Gap 27.0 (5-19) H 06/27/25 15:32 BUN 19 mg/dL (8-23) 06/27/25 15:32 Creatinine 0.7 mg/dL (0.5-0.9) 06/27/25 15:32 GFR Calculation 84.0 mL/min (90-130) L 06/27/25 15:32 Glucose 47 mg/dL (65-115) L 06/27/25 15:32 POC Glucose 127 mg/dL (70-110) H 06/27/25 16:01 Calculated Osmolality 287 mOsm/kg (285-295) 06/27/25 15:32 Calcium 9.0 mg/dL (8.5-10.5) 06/27/25 15:32 Magnesium 1.7 mg/dL (1.7-2.3) 06/27/25 15:32 Total Bilirubin 0.4 mg/dL (0.15-1.2) 06/27/25 15:32 AST 157 U/L (0-32) H 06/27/25 15:32 ALT 53 U/L (0-33) H 06/27/25 15:32 Alkaline Phosphatase 146 U/L (35-105) H 06/27/25 15:32 Total Protein 6.9 g/dL (6.6-8.7) 06/27/25 15:32 Albumin 4.2 g/dL (3.5-5.2) 06/27/25 15:32 Globulin 2.7 g/dL (1.3-4.6) 06/27/25 15:32 TSH 2.04 uIU/mL (0.27-4.20) 06/27/25 15:32 Urine Color Yellow (Yellow) 06/27/25 15:42 Urine Appearance Clear (CLEAR) 06/27/25 15:42 Urine pH 5.5 (5-7) 06/27/25 15:42 Ur Specific [place] 1.015 (1.005-1.030) 06/27/25 15:42 Urine Protein 1+ (Negative) A 06/27/25 15:42 Urine Glucose (UA) Negative (Normal) 06/27/25 15:42 Urine Ketones Negative (Negative) 06/27/25 15:42 Urine Blood Negative (Negative) 06/27/25 15:42 Urine Nitrate Negative (Negative) 06/27/25 15:42 Urine Bilirubin Negative (Negative) 06/27/25 15:42 Urine Urobilinogen 1.0 mg/dL (Negative) 06/27/25 15:42 Ur Leukocyte Esterase Negative (Negative) 06/27/25 15:42 Urine RBC 0-2 /hpf (0-2) 06/27/25 15:42 Urine WBC 0-5 /hpf (0-5) 06/27/25 15:42 Ur Squamous Epith Cells 0-5 /hpf (0-5) 06/27/25 15:42 Urine Bacteria None seen /hpf (NONE) 06/27/25 15:42 Hyaline Casts 4.52 /lpf 06/27/25 15:42 Influenza A (PCR) Negative (Negative) 06/27/25 15:19 Influenza Type B (PCR) Negative (Negative) 06/27/25 15:19 RSV (PCR) Negative (Negative) 06/27/25 15:19 SARS-CoV-2 (PCR) Negative (Negative) 06/27/25 15:19 All radiology interpretation(s) finalized by discharge EKG Data EKG 1: Interpretation: Normal sinus rhythm, normal axis, rate 95, movement on baseline present Discharge Plan Discharge Patient Disposition: Home Clinical Impression: Hypokalemia, Metabolic acidosis, Abnormal transaminases Condition: Stable Prescriptions: No Action (DME) Hinged Elbow Brace See Rx Instructions .ROUTE .MEDSUPPLY Qty: 1 0RF Rx Instructions: As directed losartan 50 mg tablet 50 mg PO DAILY pantoprazole [Protonix] 40 mg tablet,delayed release (DR/EC) 40 mg PO DAILY Qty: 30 3RF clopidogrel [Plavix] 75 mg tablet 75 mg PO DAILY rosuvastatin 20 mg tablet 20 mg PO DAILY amlodipine 5 mg tablet 10 mg PO DAILY Rx Instructions: pt states she hasnt been taking for 2 weeks-pt states the dr may have dced this medication today atenolol 100 mg tablet 100 mg PO DAILY hydrochlorothiazide 25 mg tablet 25 mg PO DAILY prednisone 20 mg tablet 20 mg PO DAILY 5 Days Qty: 15 0RF albuterol sulfate [Ventolin HFA] 90 mcg/actuation HFA aerosol inhaler 2 inh inhalation Q4H PRN (Reason: shortness of breath or wheezing) Qty: 6.7 0RF cefdinir 300 mg capsule 300 mg PO BID 10 Days Qty: 20 0RF Discharge Orders: Discharge ED (Routine); Ordered 06/27/25 Ordered By: Lynn Barone Referrals: Abraham Daly CPNP [Primary Care Provider] Discharge Diet: Usual diet Discharge Activity: Resume usual activity and Use walker/crutches as instructed Patient Instructions: Potassium Content of Foods List (ED), Alcohol Intoxication (ED), Patient Portal & Megan Instructions Activity Restrictions/Additional Instructions: - Eat foods that are rich in potassium. Eat a well-balanced meal at least twice daily. - Increase your fluid intake of noncaffeinated beverages - refrain from alcohol as your liver is showing some issues associated with alcohol intake - Follow-up on your liver labs and potassium with your doctor. Call on Wednesday for an appointment. - You did receive 40 mEq here for your potassium - You did receive 2 g of magnesium IV - Utilize a cane or a walker for gait safety - Return to ED: Worsening weakness, fever greater than 100.4 ?F Thank you for choosing [facility] for your healthcare needs today. You have been screened and evaluated and felt safe for discharge. Health conditions do change or evolve sometimes and as such it is important that you follow up with your Primary Doctor to be re checked, 3-5 days is a general good time frame for follow up. You are always welcome to return to the ED for re assessment if your symptoms are worsening or you have new concerns Print Language: Luxembourgish Coding Level of Care Code ED Magnetic Observer for Piedad Chin
--- NOTE | 2025-06-27 15:22 | PC.NURSE ---
pt provided with x2 orange juice, sandwich, applesauce. pt eating at this time.
--- OUTSIDE RECORDS SUMMARY | 2025-06-27 15:23 | XMS_ITS | Encounter Summary ---
Author Organization [facility] Address [address] [place] [address] Care Team Providers Care Drophammer Operator Name Role Phone Carmen Hassan Primary Care Provider [phone] Encounter Details Date Type Department Care Team (Late st Contact Info) Description 03/13/2004 Outpatient Historical [facility] Medicine [address] [phone] Stephanie Tomlinson FNP [address] [place] [phone] Social History Tobacco Use Types Packs/Day Years Used Date Smoking Tobacco: Never Assessed Comments Unknown Sex and Gender Information Value Date Recorded Sex Assigned at Not on file 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
--- OUTSIDE RECORDS SUMMARY | 2025-06-27 15:23 | XMS_ITS | Encounter Summary ---
Author Organization [facility] Address [address] [place] [address] Care Team Providers Care Treatment Plant Mechanic Name Role Phone Carmen Hassan Primary Care Provider [phone] Encounter Details Date Type Department Care Team (Latest Contact Info) Description 04/15/2005 Outpatient Historical [facility] [place] [address] [place] [address] Dino Justin MD [address] [facility] [address] [place] [address] SCREENING MAMM-MAILG NEOPL NEC (Primary Dx) Social History Tobacco Use Types Packs/Day Years Used Date Smoking Tobacco: Never Assessed Comments Unknown Sex and Gender Information Value Date Recorded Sex Assigned at Not on file 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
--- OUTSIDE RECORDS SUMMARY | 2025-06-27 15:23 | XMS_ITS | Clinical Summary ---
Author Organization [facility] Address [address] [place] [address] Care Team Providers Care Haul Cane Brakeman Name Role Phone Carmen Hassan [facility] Primary Care Provider [phone] Allergies Active Allergy Reactions Criticality Noted Date Comments Azithromycin Rash Low 06/24/2012 Erythromycin Rash Low 06/24/2012 Medications losartan (COZAAR) 50 mg tablet Take 50 mg by mouth daily. 1 03/28/2018 Active cloNIDine HCL (CATAPRES) 0.2 mg tablet Take 0.2 mg by mouth 2 times daily . 5 03/28/2018 Active cephALEXin (KEFLEX) 250 mg capsule Take 250 mg by mouth 4 times daily. 04/20/2018 Active carvediloL (COREG) 12.5 mg tablet Take 1 Tablet (12.5 mg) by mouth 2 times daily with meals Hold if SBP <100 or HR <60. 60 Tablet 4 04/20/2018 Active aspirin (ECOTRIN EC) 81 mg Tablet, Delayed Release (E.C.) Take 1 Tablet (81 mg) by mouth daily. 04/29/2018 Active Active Problems Problem Noted Date Diagnosed Date Aortic valve regurgitation 04/20/2018 Essential hypertension 04/06/2018 Abnormal EKG 04/06/2018 Murmur 04/06/2018 Tobacco abuse 04/06/2018 Bruit of left carotid artery 04/06/2018 Immunizations Immunization Administration Dates Next Due Influenza Seasonal Unspecified Formulation IM ,05/18/2008 Family History Medical History Relation Name Comments Heart Disease Father Diabetes Mother Stroke Mother Heart Disease Sister Relation Name Status Comments Father CEA, CABG in 60 s Mother Sister Afib Social History Tobacco Use Types Packs/Day Years Used Date Smoking Tobacco: Every Day Cigarettes Smokeless Tobacco: Never Alcohol Use Standard Drinks/Week Comments Yes 2 (1 standard drink = 0.6 oz pur e alcohol) Comments Unknown Sex and Gender Information Value Date Recorded Sex Assigned at Not on file Legal Sex Female 9:48 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 Gender Identity Not on file Sexual Orientation Not on file Last Filed Vital Signs Vital Sign Reading Time Taken Comments Blood Pressure 164/102 04/20/2018 2:28 PM CDT Pulse 84 04/20/2018 2:28 PM CDT Temperature - - Respiratory Rate - - Oxygen Saturation - - Inhaled Oxygen Concentration - - Weight 56.4 kg (124 lb 6.4 oz) 04/20/2018 2:28 P M CDT Height 172.7 cm (5' 8 ) 04/20/2018 2:28 PM CDT Body Mass Index 18.91 04/20/2018 2:28 PM CDT Plan of Treatment Health Maintenance Due Date Last Done Comments DTAP/TDAP/TD VACCINES (1 - Tdap) 09/12/1978 PNEUMOCOCCAL VACCINE 50+ YEA RS (1 of 2 - PCV) 09/12/1978 COLORECTAL SCREENING 09/12/2004 Colorectal Cancer Screening 09/12/2004 FIT-DNA Q 3 years 09/12/2004 FIT/FOBT Q 1 year 09/12/2004 Flex Sig/CT Colonography Q 5 years 09/12/2004 BREAST CANCER SCREENING 04/15/2006 04/15/2005 ZOSTER VACCINE (1 of 2) 09/12/2009 INFLUENZA VACCINE (#1) 2025 06/06/2012, 2007 OSTEOPOROSIS SCREENING 03/26/2026 03/26/2021 RSV VACCINE (60+ or ) (1 - 1-dose 75+ series) 09/12/2034 Procedures Procedure Name Priority Date/Time Associated Diagnosis Comments XR DEXA BONE DENSITY AXIAL 1 OR MORE SITES Routine 03/26/2021 2:10 PM CDT Asymptomatic menopausal state from Last 3 Months or Most Recently Relevant to Health Maintenance Results * XR DEXA BONE DENSITY AXIAL 1 OR MORE SITES (03/26/2021 2:10 PM CDT) Anatomical Region Laterality Modality Digital Radiogra phy 03/26/2021 2:10 PM CDT Impressions 03/26/2021 9:49 PM CDT IMPRESSION: Abnormal examination Bone density lies in the osteoporotic range at all locations lying significantly below the average the patient's age-matched control and markedly so in the hip consistent with a medical condition responsible for her osteoporosis. Further evaluation may be helpful. NOF guidelines recommend consideration of FDA-approved medical therapies in patients with T-scores of the spine or hip equal to or less than -2.5 or with FRAX determined 10-year probabilities of hip/major osteoporosis-related fractures equal or greater than 3%/20% respectively. Consider assessing fracture risk using the FRAX analysis tool for guidance of clinical management available online at www.shef.ac.uk/FRAX/. Enter Hologic for Select DXA and the Femoral Neck BMD value. Also consider remeasuring no sooner than one year only as clinically indicated/needed. Narrative 03/26/2021 9:49 PM CDT DEXA Evaluation of the Lumbar Spine and Left Proximal Femur Reason for Consultation: Ovarian failure. Evaluation of bone mineral density. The following absorptiometry data were obtained. The quality of this examination is acceptable with regards to count density, processed images, data display and lack of important artifacts (including but not limited to motion and attenuation artifacts). Serial examination number 1. L1-L4 BMD (g/cm2): 0.759 Adult T-score: -2.6 Adult Z-score: -1.1 Left Femoral Neck BMD (g/cm2): 0.46 Adult T-score: -3.4 Adult Z-score: -2.1 Left Total Hip BMD (g/cm2): 0.584 Adult T-score: -2.9 Adult Z-score: -1.9 Procedure Note Jonel Clayton MD - 03/26/2021 DEXA Evaluation of the Lumbar Spine and Left Proximal Femur Reason for Consultation: Ovarian failure. Evaluation of bone mineral density. The following absorptiometry data were obtained. The quality of this examination is acceptable with regards to count density, processed images, data display and lack of important artifacts (including but not limited to motion and attenuation artifacts). Serial examination number 1. L1-L4 BMD (g/cm2): 0.759 Adult T-score: -2.6 Adult Z-score: -1.1 Left Femoral Neck BMD (g/cm2): 0.46 Adult T-score: -3.4 Adult Z-score: -2.1 Left Total Hip BMD (g/cm2): 0.584 Adult T-score: -2.9 Adult Z-score: -1.9 IMPRESSION: Abnormal examination Bone density lies in the osteoporotic range at all locations lying significantly below the average the patient's age-matched control and markedly so in the hip consistent with a medical condition responsible for her osteoporosis. Further evaluation may be helpful. NOF guidelines recommend consideration of FDA-approved medical therapies in patients with T-scores of the spine or hip equal to or less than -2.5 or with FRAX determined 10-year probabilities of hip/major osteoporosis-related fractures equal or greater than 3%/20% respectively. Consider assessing fracture risk using the FRAX analysis tool for guidance of clinical management available online at www.shef.ac.uk/FRAX/. Enter Hologic for Select DXA and the Femoral Neck BMD value. Also consider remeasuring no sooner than one year only as clinically indicated/needed. Carmen Hassan [facility] DIAGNOSTIC IMAGING ORDERABLES Final Result from Last 3 Months or Most Recently Relevant to Health Maintenance Insurance MEDICARE PART A AND B [facility] MEDICARE Care Teams Haul Cane Brakeman Relationship Specialty Start Date End Date Carmen Hassan, SAMUEL [address] [place] [address] PCP - General 10/23/20
--- OUTSIDE RECORDS SUMMARY | 2025-06-27 15:23 | XMS_ITS | Encounter Summary ---
Author Organization [facility] Address [address] [place] [address] Care Team Providers Care Pantograph Machine Set Up Operator Name Role Phone Carmen Hassan Primary Care Provider [phone] Encounter Details Date Type Department Care Team (Latest Contact Info) Description 04/15/2005 Outpatient Historical [facility] Breast [facility] [place] [address] [place] [address] Ata Bauer MD NO ADDRESS ON FILE SCREENING MAMM-MAILG NEOPL NEC (Primary Dx) Social History Tobacco Use Types Packs/Day Years Used Date Smoking Tobacco: Never Assessed Comments Unknown Sex and Gender Information Value Date Recorded Sex Assigned at Not on file Legal Sex Female 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
--- OUTSIDE RECORDS SUMMARY | 2025-06-27 15:23 | XMS_ITS | Encounter Summary ---
Author Organization [facility] Address [address] [place] [address] Care Team Providers Care Groundwater Consultant Name Role Phone Carmen Hassan Primary Care Provider [phone] Encounter Details Date Type Department Care Team (Latest Contact Info) Description 04/22/2004 Outpatient Historical [facility] General Surgery [address] [address] [address] [place] [address] [place] [address] [facility] [address] [place] [id number] SEBACEOUS CYST (Primary Dx) Social History Tobacco Use Types Packs/Day Years Used Date Smoking Tobacco: Never Assessed Comments Unknown Sex and Gender Information Value Date Recorded Sex Assigned at Not on file Legal Sex Female 5:44 AM TAX MANAGER CPA Gender Identity Not on file Sexual Orientation Not on file documented as of this encounter Plan of Treatment Not on file documented as of this encounter Visit Diagnoses Diagnosis Sebaceous cyst- Primary documented in this encounter Care Teams Groundwater Consultant Relationship Specialty Start Date End Date Carmen Hassan FNP [address] [place] [address] PCP - General NURSE PRACTITIONER 04/20/18 documented as of this encounter
--- OUTSIDE RECORDS SUMMARY | 2025-06-27 15:23 | XMS_ITS | Encounter Summary ---
Author Organization [facility] Address [address] [place] [address] Care Team Providers Care Director Of Assisted Living Name Role Phone Carmen Hassan Primary Care Provider [phone] Encounter Details Date Type Department Care Team (Latest Contact Info) Description 03/13/2004 Outpatient Historical [facility] Medicine [address] [phone] Stephanie Tomlinson FNP [address] [place] [phone] Gynecologic examination (Primary Dx); Local superficial swellng Social History Tobacco Use Types Packs/Day Years Used Date Smoking Tobacco: Never Assessed Comments Unknown Sex and Gender Information Value Date Recorded Sex Assigned at Not on file 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
--- OUTSIDE RECORDS SUMMARY | 2025-06-27 15:23 | XMS_ITS | Encounter Summary ---
Author Organization [facility] Address [address] [place] [address] Care Team Providers Care Office Machines Wirer Name Role Phone Carmen Hassan Primary Care Provider [phone] Encounter Details Date Type Department Care Team (Latest Contact Info) Description 10/23/2020 Ancillary Orders [facility] Centralized Scheduling [address] [place] [address] Carmen Hassan FNP [address] [place], [place] [address] Hepatomegaly, not elsewhere classified Social History Tobacco Use Types Packs/Day Years Used Date Smoking Tobacco: Every Day Cigarettes 1 45 Smokeless Tobacco: Never Alcohol Use Standard Drinks/Week Comments Yes 2 (1 standard drink = 0.6 oz pur e alcohol) Comments No Sex and Gender Information Value Date Recorded Sex Assigned at Not on file 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
--- OUTSIDE RECORDS SUMMARY | 2025-06-27 15:23 | XMS_ITS | Encounter Summary ---
Author Organization [facility] Address [address] [place] [address] Care Team Providers Care Sports Medicine Masseur Name Role Phone Carmen Hassan Primary Care Provider [phone] Encounter Details Date Type Department Care Team (Latest Contact Info) Description 03/29/2001 Outpatient Historical [facility] Medicine [address] [address] Robson Ludwig DO NO ADDRESS ON FILE Vaginitis and vulvovaginitis, unspecified (Primary Dx) Social History Tobacco Use Types Packs/Day Years Used Date Smoking Tobacco: Never Assessed Comments Unknown Sex and Gender Information Value Date Recorded Sex Assigned at Not on file 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
--- OUTSIDE RECORDS SUMMARY | 2025-06-27 15:23 | XMS_ITS | Encounter Summary ---
Author Organization [facility] Address [address] [place] [address] Care Team Providers Care Cigarette Making Examiner Name Role Phone Carmen Hassan Primary Care Provider [phone] Encounter Details Date Type Department Care Team (Latest Contact Info) Description 06/13/2001 Outpatient Historical [facility] [address] [phone] Dino Justin MD [address] [phone] ACUTE URI NOS (Primary Dx); PREG STATE, INCIDENTAL Social History Tobacco Use Types Packs/Day Years Used Date Smoking Tobacco: Never Assessed Comments Unknown Sex and Gender Information Value Date Recorded Sex Assigned at Not on file 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
--- OUTSIDE RECORDS SUMMARY | 2025-06-27 15:23 | XMS_ITS | Encounter Summary ---
Author Organization [facility] Address [address] [place] [address] Care Team Providers Care Executive Housekeeper Name Role Phone Carmen Hassan Primary Care Provider [phone] Encounter Details Date Type Department Care Team (Latest Contact Info) Description 04/23/2000 Outpatient Historical [address] [phone] Robson Ludwig DO NO ADDRESS ON FILE Acute upper respiratory infections of unspecified site (Primary Dx) Social History Tobacco Use Types Packs/Day Years Used Date Smoking Tobacco: Never Assessed Comments Unknown Sex and Gender Information Value Date Recorded Sex Assigned at Not on file 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
--- OUTSIDE RECORDS SUMMARY | 2025-06-27 15:23 | XMS_ITS | Encounter Summary ---
Author Organization [facility] Address [address] [place] [address] Care Team Providers Care Photogrammetric Stereo Compiler Name Role Phone Carmen Hassan Primary Care Provider [phone] Encounter Details Date Type Department Care Team (Late st Contact Info) Description 04/09/2004 Outpatient Historical [facility] [place] [address] [place] [address] Kami Foley MD NO ADDRESS ON FILE SCREENING MAMM-MAILG NEOPL-OTHER (Primary Dx) Social History Tobacco Use Types Packs/Day Years Used Date Smoking Tobacco: Never Assessed Comments Unknown Sex and Gender Information Value Date Recorded Sex Assigned at Not on file Legal Sex Female 5:44 AM CLIN NURSE SPEC Gender Identity Not on file Sexual Orientation Not on file documented as of this encounter Plan of Treatment Not on file documented as of this encounter Visit Diagnoses Diagnosis Other screening mammogram- Primary documented in this encounter Care Teams Photogrammetric Stereo Compiler Relationship Specialty Start Date End Date Carmen Hassan FNP [address] [place] [address] PCP - General NURSE PRACTITIONER 04/20/18 documented as of this encounter
--- OUTSIDE RECORDS SUMMARY | 2025-06-27 15:23 | XMS_ITS | Clinical Summary ---
Author Organization [facility] Address [address] [facility] [place] [place] [address] Care Team Providers Care Clay Carman Name Role Phone Carmen Hassan Edwina [facility] Primary Care Provider [phone] Allergies Active Allergy Reactions Criticality Noted Date Comments Azithromycin Rash Low 06/24/2012 Erythromycin Rash Low 06/24/2012 Medications cloNIDine HCl (CATAPRES) 0.2 mg tablet Take 0.2 mg by mouth 2 times daily . 5 03/28/2018 Active losartan (COZAAR) 50 mg tablet Take 50 mg by mouth daily. 1 03/28/2018 Active cephALEXin (KEFLEX) 250 mg capsule Take 250 mg by mouth 4 times daily. Active carvedilol (COREG) 12.5 mg tablet Take 1 Tablet (12.5 mg) by mouth 2 times daily with meals Hold if SBP <100 or HR <60. 60 Tablet 4 04/20/2018 Active aspirin (ECOTRIN EC) 81 mg Tablet, Delayed Release (E.C.) Take 1 Tablet (81 mg) by mouth daily. 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 Gender Identity Not on file Sexual Orientation Not on file Occupation Industry Job Start Date Job End Date unemployed Not on file Not on file Not on file Last Filed Vital Signs Vital Sign Reading Time Taken Comments Blood Pressure 164/102 04/20/2018 2:28 PM CDT Pulse 84 04/20/2018 2:28 PM CDT Temperature 36.4 C (97.5 F) 07/15/2012 1:57 PM JIG WORKER Respiratory Rate 20 07/15/2012 1:57 PM JIG WORKER Oxygen Saturation 96% 07/15/2012 1:57 PM JIG WORKER Inhaled Oxygen Concentration - - Weight 56.4 [...] 04/15/2005 ZOSTER VACCINE (1 of 2) 09/12/2009 OSTEOPOROSIS SCREENING 09/12/2024 INFLUENZA VACCINE (#1) 2025 06/06/2012, 2007 RSV VACCINE (60+ or ) (1 - 1-dose 75+ series) 09/12/2034 Insurance MEDICARE PART A AND B Care Teams Clay Carman Relationship Specialty Start Date End Date Carmen Hassan FNP [address] [place] [address] PCP - General NURSE PRACTITIONER 04/20/18
--- OUTSIDE RECORDS SUMMARY | 2025-06-27 15:23 | XMS_ITS | Encounter Summary ---
Author Organization [facility] Address [address] [place] [address] Care Team Providers Care Site Administrator Name Role Phone Carmen Hassan Primary Care Provider [phone] Encounter Details Date Type Department Care Team (Latest Contact Info) Description 04/29/2001 Outpatient Historical [address] [phone] Robson Ludwig DO NO ADDRESS ON FILE Acute upper respiratory infections of unspecified site (Primary Dx); Toxic effect venom; Enlargement of lymph nodes Social History Tobacco Use Types Packs/Day Years Used Date Smoking Tobacco: Never Assessed Comments Unknown Sex and Gender Information Value Date Recorded Sex Assigned at Not on file 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
--- OUTSIDE RECORDS SUMMARY | 2025-06-27 15:23 | XMS_ITS | Encounter Summary ---
Author Organization [facility] Address [address] [place] [address] Care Team Providers Care Winding Operator Name Role Phone Carmen Hassan Primary Care Provider [phone] Encounter Details Date Type Department Care Team (Latest Contact Info) Description 04/09/2004 Outpatient Historical [facility] [place] [address] [place] [address] Stephanie Tomlinson FNP [address] [place] [address] SCREENING MAMM-MAILG NEOPL-OTHER (Primary Dx) Social History Tobacco Use Types Packs/Day Years Used Date Smoking Tobacco: Never Assessed Comments Unknown Sex and Gender Information Value Date Recorded Sex Assigned at Not on file 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
--- NOTE | 2025-06-27 15:35 | ECG_ITS ---
[facility] 2025[facility]27 Pat Name: Chiquita Monroe Department: Room: Gender: Female Support Coordinator: : 1960 Requested By: Lynn Barone Order Number: [id number] Reading MD: HARMAN FLORES Measurements Intervals [place] Rate: 95 P: 54 CA: 203 QRS: -28 QRSD: 86 T: 67 QT: 376 QTc: 474 Interpretive Statements SINUS RHYTHM WITH OCCASIONAL VENTRICULAR PREMATURE COMPLEXES WITH OCCASIONAL SUPRAVENTRICULAR PREMATURE COMPLEXES LOW QRS VOLTAGE IN EXTREMITY LEADS [QRS DEFLECTION < 0.5 mV IN LIMB LEADS] POSSIBLE INFERIOR MYOCARDIAL INFARCTION , PROBABLY OLD [30 ms Q WAVE IN II/aVF] Compared to ECG 02/06/2020 20:56:24 Ventricular premature complex(es) now present Low QRS voltage now present Myocardial infarct finding now present Electronically Signed On 06-27-2025 20:14:04 CHAUFFEUR by HARMAN FLORES [email or web address]
[2025-06-27 15:38] LABS: Hematocrit 37.4 % (36-47); Hemoglobin 12.70 g/dL (11.27-16.99); Mean Corpuscular HGB Conc 34.0 g/dL (30-55); Mean Corpuscular Hemoglobin 32.8 pg (27-33); Mean Corpuscular Volume 96.6 fl (85-98); Nucleated Red Blood Cells % 0 %; Platelet Count 375 10^3/cmm (157-399); Red Blood Count 3.87 10^6/uL (3.85-5.65); White Blood Count 4.43 10^3/uL (3.29-11.43)
[2025-06-27 15:50] LABS: Glucose Urine UA Negative (Normal); Nitrate Urine Negative (Negative); Specific Gravity, Urine 1.015 (1.005-1.030)
[2025-06-27 15:55] LABS: Add Urine Microscopic? YES; Universal Test for UA Present (0)
--- NOTE | 2025-06-27 16:04 | PC.NURSE ---
glucose via FS @1600: 127
[2025-06-27 16:06] LABS: UA Slide Review UA Slide Review Perf
[2025-06-27 16:07] LABS: Alanine Aminotransferase 53 U/L (0-33); Albumin Level 4.2 g/dL (3.5-5.2); Alkaline Phosphatase 146 U/L (35-105); Anion Gap 27.0 (5-19); Aspartate Amino Transferase 157 U/L (0-32); Blood Urea Nitrogen 19 mg/dL (8-23); Calcium 9.0 mg/dL (8.5-10.5); Carbon Dioxide 19 mmol/L (22-29); Chloride 96 mmol/L (98-107); Globulin 2.7 g/dL (1.3-4.6); Glucose 47 mg/dL (65-115); Magnesium 1.7 mg/dL (1.7-2.3); Osmolality Calculated 287 mOsm/kg (285-295); Potassium 3.0 mmol/L (3.5-5.1); Sodium 139 mmol/L (136-145); Thyroid Stimulating Hormone 2.04 uIU/mL (0.27-4.20); Total Protein 6.9 g/dL (6.6-8.7)
[2025-06-27 16:10] LABS: Respiratory Syncytial Virus Ce NEGATIVE (Negative); SARS-CoV-2 PCR NEGATIVE (Negative)
[2025-06-27] MEDS: magnesium sulfate premix 2 GM/50 ML PIGGYBACK IV (16:36)
[2025-06-27 17:31] VITALS: PULSE 90; O2SAT 95
[2025-06-27 19:42] VITALS: BP 153/119; PULSE 93; O2SAT 94
== END 2025-06-27 19:35 | disposition home or self-care (01) ==
PROVIDERS: Emergency Provider Physician Assistant; PCP Registered Nurse
DX: E87.6 Hypokalemia (principal); E87.20 Acidosis, unspecified; R74.01 Elevation of levels of liver transaminase levels; Z79.02 Long term (current) use of antithrombotics/antiplatelets; Z11.52 Encounter for screening for COVID-19; F17.210 Nicotine dependence, cigarettes, uncomplicated; I10 Essential (primary) hypertension; E78.5 Hyperlipidemia, unspecified
CPT/HCPCS: 36416; 71045; 80053; 81001; 82962; 83735; 84443; 85025; 87637; 93005; 96365; 96366; 99285; J3475; J7030; J9999